=== PATIENT | male | born 1955 | race Caucasian/White ===

== ENCOUNTER 2016-06-12 07:15 | Inpatient (IN) | payer OTHER ==
[2016-06-12] VITALS (9 sets, daily range): BP systolic 95–124; BP diastolic 69–82
[~2016-06-12] VITALS: Ht 182.9 cm; Wt 105.2 kg
[~2016-06-12 07:15] MED LIST: ACET500T33 PO; ASPI-482 PO; CETI10TA16 PO; CHOL10002 PO; CHOL20004 PO; DIPH25CA3 PO; FAMO40TA4 PO; GLIM4TAB2 PO; INSU100I13 SQ; LISI40TA PO; METF10002 PO; MULT1CAP15 PO; SIMV40TA3 PO; TADA20TA PO
[2016-06-12] MEDS ORDERED: ASPIRIN 81 MG TAB.CHEW PO ONE ×2 (07:30→16:15)
[2016-06-12] MEDS ORDERED: MORPHINE SULFATE 2 MG/ML DISP.SYRIN. IV ONE (07:45)
[2016-06-12] MEDS ORDERED: NITROGLYCERIN SUBLINGUAL 0.4 MG BOTTLE OF 25. SL PRN ×2 (07:45→16:30)
--- NOTE | 2016-06-12 07:52 | EKG ---
[facility] [address] [place] [address] Test Date: 2016-06-12 Test Time: 07:25:47 Pat Name: JOE BENNETT Department: Room: Gender: M Frontload Driver: : 1955 Requested By: VANGIE ABEL Order Number: [id number] Reading MD: Zach Martins Measurements Intervals [place] Rate: 75 P: 51 GA: 174 QRS: 75 QRSD: 94 T: 48 QT: 364 QTc: 409 Interpretive Statements SINUS RHYTHM INCOMPLETE RIGHT BUNDLE BRANCH BLOCK NONSPECIFIC ST-T WAVE CHANGES. RI6.01 No previous ECG available for comparison Electronically Signed On 06-12-2016 10:51:51 VAULT TELLER by Zach Martins
--- NOTE | 2016-06-12 07:54 | PHYS DOC ---
Past Medical History Past Medical History: Diabetes-Type II, Hypertension, Other Additional Past Medical Histor: High Cholesterol. Past Surgical History: Other Additional Past Surgical Histo: Inguinal hernia at age 6,Surgery for cataracts, eye muscles,inc.eye pressure Alcohol Use: None Drug Use: None Adult General Chief Complaint Chief Complaint: CHEST PAIN HPI HPI Patient is a 60 year old male, who is a smoker, has a history of hypercholesterolemia, diabetes and hypertension with a brother who is 7 years younger than him that of a heart attack 3 years ago who presents with atraumatic chest pain/pressure with also adjacent left arm numbness/tingling that is been intermittent in nature for the past 3 days. Patient denies shortness of breath, cough, chills, epigastric pain, nausea or vomiting. He denies any provocative or palliative maneuvers for the pain. Patient admits that he does not check his blood sugar daily. He does not have a dedicated primary care doctor at this time. Patient states that "something" woke him up this morning that caused him to have chest discomfort as well as some mid back discomfort. He states this became concerning to him, so he came into the emergency room for evaluation. Patient denies any previous cardiac evaluations. He is currently experiencing less discomfort than he did earlier this morning. Review of Systems Review of Systems Constitutional: Denies fever or chills [] Eyes: Denies change in visual acuity, redness, or eye pain [] HENT: Denies nasal congestion or sore throat [] Respiratory: Denies cough or shortness of breath [] Cardiovascular: No additional information not addressed in HPI [] GI: Denies abdominal pain, nausea, vomiting, bloody stools or diarrhea [] : Denies dysuria or hematuria [] Musculoskeletal: Denies back pain or joint pain [] Integument: Denies rash or skin lesions [] Neurologic: Denies headache, focal weakness or sensory changes [] Endocrine: Denies polyuria or polydipsia [] Current Medications Current Medications Current Medications Medications (Trade) Dose Ordered Sig/Mick Start Time Stop Time Status Last Admin Dose Admin Aspirin (Children'S Aspirin) 324 mg 1X ONCE 06/12/16 07:30 06/12/16 07:33 DC 06/12/16 08:07 324 MG Heparin Sodium (Porcine) 3,000 unit PRN Q6HRS PRN 06/12/16 08:45 Heparin Sodium/ Dextrose 500 ml @ 20 mls/hr CONT PRN 06/12/16 08:45 Morphine Sulfate 2 mg 1X ONCE 06/12/16 07:45 06/12/16 07:47 DC 06/12/16 08:06 2 MG Nitroglycerin 0.4 mg 0.4 mg PRN Q5MIN PRN 06/12/16 07:45 06/12/16 08:05 0.4 MG Allergies Allergies Allergies Coded Allergies Type Severity Reaction Last Updated Verified No Known Drug Allergies 08/27/13 No Physical Exam Physical Exam Constitutional: Well developed, well nourished, no acute distress, non-toxic appearance. Patient sitting upright in the bed in no acute distress. He smells of cigarette smoke. HENT: Normocephalic, atraumatic, bilateral external ears normal, oropharynx moist, no oral exudates, nose normal. Eyes: PERRLA, EOMI, conjunctiva normal, no discharge. [] Neck: Normal range of motion, no tenderness, supple, no stridor. [] Cardiovascular:Heart rate 75 regular rhythm, no murmur. There is no JVD. PMI is not displaced. Lungs & Thorax: Bilateral breath sounds with scattered, coarse breath sounds. There is no respiratory distress or respiratory fatigue. There is no sensory muscle use. Abdomen: Bowel sounds normal, soft, no tenderness, no masses, no pulsatile masses. [] Skin: Warm, dry, no erythema, no rash. [] Back: No tenderness, no CVA tenderness. [] Extremities: No tenderness, no cyanosis, no clubbing, ROM intact, no edema. [] Neurologic: Alert and oriented X 3, normal motor function, normal sensory function, no focal deficits noted. [] Psychologic: Affect normal, judgement normal, mood normal. [] Current Patient Data Vital Signs Vital Signs Date Time Temp Pulse Resp B/P Pulse Ox O2 Delivery O2 Flow Rate FiO2 06/12/16 08:06 16 06/12/16 08:05 79 140/87 06/12/16 07:27 98.1 100 Room Air 98.1 Lab Values Laboratory Tests Test 06/12/16 07:35 White Blood Count 6.6x10^3/uL (4.0-11.0) Red Blood Count 5.17x10^6/uL (4.30-5.70) Hemoglobin 16.0g/dL (13.0-17.5) Hematocrit 48.9% (39.0-53.0) Mean Corpuscular Volume 95fL (79-100) Mean Corpuscular Hemoglobin 31pg (25-35) Mean Corpuscular Hemoglobin Concent 33g/dL (31-37) Red Cell Distribution Width 13.5% (11.5-14.5) Platelet Count 220x10^3/uL (140-400) Neutrophils (%) (Auto) 57% (31-73) Lymphocytes (%) (Auto) 29% (24-48) Monocytes (%) (Auto) 10% (0-9) H Eosinophils (%) (Auto) 3% (0-3) Basophils (%) (Auto) 1% (0-3) Neutrophils # (Auto) 3.7x10^3uL (1.8-7.7) Lymphocytes # (Auto) 1.9x10^3/uL (1.0-4.8) Monocytes # (Auto) 0.7x10^3/uL (0.0-1.1) Eosinophils # (Auto) 0.2x10^3/uL (0.0-0.7) Basophils # (Auto) 0.0x10^3/uL (0.0-0.2) Prothrombin Time 12.2SEC (11.7-14.0) Prothrombin Time INR 1.0 (0.8-1.1) Sodium Level 129mmol/L (136-145) L Potassium Level 4.5mmol/L (3.5-5.1) Chloride Level 99mmol/L (98-107) Carbon Dioxide Level 27mmol/L (21-32) Anion Gap 3 (6-14) L Blood Urea Nitrogen 24mg/dL (8-26) Creatinine 1.2mg/dL (0.7-1.3) Estimated GFR (Cockcroft-Gault) 61.8 Glucose Level 140mg/dL (70-99) H Calcium Level 9.8mg/dL (8.5-10.1) Magnesium Level 1.8mg/dL (1.8-2.4) Total Bilirubin 0.4mg/dL (0.2-1.0) Direct Bilirubin 0.1mg/dL (0.0-0.2) Aspartate Amino Transferase (AST) 31U/L (15-37) Alanine Aminotransferase (ALT) 31U/L (16-63) Alkaline Phosphatase 86U/L (46-116) Creatine Kinase 314U/L (39-308) H Creatine Kinase MB (Mass) 24.7ng/mL (0.0-3.6) H Creatine Kinase MB Relative Index 7.9% (0-4) H Troponin I Quantitative 1.928ng/mL (0.000-0.055) JZ-Jxs-P-Type Natriuretic Peptide 201pg/mL (0-124) H Total Protein 7.3g/dL (6.4-8.2) Albumin 4.0g/dL (3.4-5.0) Lipase 620U/L (73-393) H Laboratory Tests 06/12/16 07:35 Laboratory Tests 06/12/16 07:35 EKG EKG Twelve-lead EKG is performed at 0725 which shows a sinus rhythm with a rate of 75 bpm. DE interval is 174 ms with QRS duration of 94 ms and a QT duration of 409 ms. There is no [address] elevation or depression. There is an incomplete right bundle-branch block. There is no previous EKG to compare to. Radiology/Procedures Radiology/Procedures Chest x-ray as interpreted by Dr. Kang showing bilateral fibrotic changes, otherwise no acute cardiopulmonary disease process Course & Med Decision Making Course & Med Decision Making Pertinent Labs and Imaging studies reviewed. (See chart for details) Patient was seen and examined with JENY Tinsley. In brief, this is a 60- year-old male presenting with nonexertional chest pain that radiates to his left arm and back. These are intermittent episodes usually occurring at rest. They last from minutes to hours at a time. He had an episode this morning that woke him from sleep. He is currently asymptomatic. He denies cough, dyspnea, leg pain or swelling, fever or chills, nausea or vomiting, palpitations, lightheadedness. His exam reveals regular rate and rhythm, no edema, clear to auscultation bilaterally, no acute distress. EKG is nonischemic, chest film is largely unremarkable; Troponin is elevated. Will admit for NSTEMI. YAMILET score 3. Discussed case with Martine, cardiology CERTIFIED REGISTERED NURSE ANESTHETIST, who recommends heparin drip and will see him. Discussed case with Dr. Olivier, who will admit. -MD Werner Pearl Disclaimer Zaraon Disclaimer This electronic medical record was generated, in whole or in part, using a voice recognition dictation system. Departure Departure Impression: Primary Impression: NSTEMI (non-ST elevated myocardial infarction) Disposition: ADMITTED INPATIENT Admitting Physician: Marichuy Olivier Condition: STABLE Referrals: GAURAV AHMADI APRN (PCP) VANGIE ABEL Jun 12, 2016 07:54 Susana KANG MD Jun 12, 2016 08:17
[2016-06-12 07:59] LABS: BASO % 1 % (0-3); EOS % 3 % (0-3); HEMATOCRIT 48.9 % (39.0-53.0); LYMPH # 1.9 x10^3/uL (1.0-4.8); LYMPH % 29 % (24-48); MEAN CORPUSCULAR HEMOGLOBIN 31 pg (25-35); MEAN CORPUSCULAR HGB CONC 33 g/dL (31-37); MEAN CORPUSCULAR VOLUME 95 fL (79-100); MONO % 10 % (0-9); NEUT % 57 % (31-73); PLATELET COUNT 220 x10^3/uL (140-400); RED BLOOD COUNT 5.17 x10^6/uL (4.30-5.70); RED CELL DISTRIBUTION WIDTH 13.5 % (11.5-14.5); WHITE BLOOD COUNT 6.6 x10^3/uL (4.0-11.0)
[2016-06-12 08:08] LABS: PROTHROMBIN TIME PATIENT 12.2 SEC (11.7-14.0)
[2016-06-12 08:16] LABS: CALCIUM 9.8 mg/dL (8.5-10.1); CREATININE 1.2 mg/dL (0.7-1.3); GFR 61.8; POTASSIUM 4.5 mmol/L (3.5-5.1)
[2016-06-12 08:23] LABS: DIRECT BILIRUBIN 0.1 mg/dL (0.0-0.2); MAGNESIUM 1.8 mg/dL (1.8-2.4); TOTAL BILIRUBIN 0.4 mg/dL (0.2-1.0); TOTAL PROTEIN 7.3 g/dL (6.4-8.2)
[2016-06-12 08:31] LABS: CKMB INDEX 7.9 % (0-4); CKMB MASS 24.7 ng/mL (0.0-3.6)
--- NOTE | 2016-06-12 08:34 | RAD ---
Indication left-sided chest pain. A single view of the chest was obtained. Comparison is made to an examination 08/27/2013. The heart and pulmonary vessels appear normal. The lungs are clear of acute infiltrates. Significant pleural fluid is not present. There is no pneumothorax. The bony structures appear grossly intact. A significant change in the appearance of the chest compared to the previous exam is not seen. IMPRESSION: No acute or focal process. No significant change
--- NOTE | 2016-06-12 08:37 | ACF ---
Admit Criteria Forms Admit Criteria Forms Admit Criteria Forms ANGINA Clinical Indications for Admission to Inpatient Care (Place 'X' for any and all applicable criteria): Admission is indicated for suspected angina (e.g, chest pain pattern, angina- equivalent symptom, or other finding suggesting unstable angina) with ANY ONE of the following(1)(2)(3)(4)(5): [X]I. Angina needing acute intervention as indicated by ALL of the following ( 11)(12): [X ]a) Unstable angina is present as indicated by angina that is ANY ONE of the following: [X]i) New onset [ ]ii) Nocturnal [ ]iii) Prolonged at rest [ ]iv) Progressive [X]b) Angina warrants acute intervention as indicated by ANY ONE of the following: [ ]i) Recurrent angina (e.g, not responding as previously to treatment) [ ]ii) Angina at rest or with low-level activities despite initial medical therapy [ ]iii) New or presumably new ST-segment depression on ECG [ ]iv) Signs or symptoms of heart failure (eg, dyspnea, pulmonary edema) [ ]v) New or worsening mitral regurgitation [ ]vi) Hemodynamic instability [ ]vii) Dangerous arrhythmia (eg, sustained ventricular tachycardia) [ ]viii) History of percutaneous coronary intervention within 6 months [ ]ix) History of coronary artery bypass graft surgery [X]x) YAMILET risk score of 2 or greater[A] [X ]xi) History of Diabetes(14) [ ]xii) High-risk cardiac ischemia findings on noninvasive testing (e.g, echocardiogram, treadmill testing, nuclear scan) [ ]xiii) Chronic renal insufficiency (ie, estimated GFR less than 60 mL/min/1.732m) [ ]xiv) Left ventricular ejection fraction less than 40% [ ]II. Evidence of VT (e.g, cardiac biomarkers positive, ST-segment elevation on ECG). Also use Myocardial Infarction. Extended stay beyond goal length of stay may be needed for (1)(26): [ ]a) Intravascular procedural complications such as acute vessel closure, stent malposition, or vessel dissection(27) [ ]b) Extravascular procedural complications such as retroperitoneal hematoma, pericardial effusion, or cardiac tamponade [ ]c) Entry site complications causing bleeding, hematoma, or distal ischemia and requiring ongoing monitoring, surgical repair, or surgical thrombectomy(28) [ ]d) Heart failure [ ]e) Dangerous arrhythmia [ ]f) Hemodynamic instability with persisting symptoms after intensive medical management, or recurring severe prolonged symptoms [ ]g) Postprocedural myocardial infarction or acute renal failure The original [facility] [employer] content created by [facility] has been revised. The portions of the content which have been revised are identified through the use of italic text or in bold, and [facility] has neither reviewed nor approved the modified material. All other unmodified content is copyright [facility]. Please see references footnoted in the original [facility] [employer] edition 2016 TRENA TOSCANO Jun 12, 2016 08:37
[2016-06-12] MEDS ORDERED: HEPARIN for IV BOLUS 10,000 UNIT/10 ML VIAL. IV PRN (08:45)
[2016-06-12] MEDS ORDERED: HEPARIN 25,000UTS/500ML PREMIX 500 ML IV PRN (08:45)
[2016-06-12] MEDS ORDERED: IV NORMAL SALINE 1000ML BAG 1,000 ML IV SCH ×2 (09:50→16:18)
--- NOTE | 2016-06-12 10:04 | PDOC2 ---
CARDIAC CONSULT DATE OF CONSULT Date of Consult DATE: 06/12/16 TIME: 09:51 REASON FOR CONSULT Reason for Consult: NSTEMI REFERRING PHYSICIAN Referring Physician: Luis SOURCE Source: Chart review, Patient HISTORY OF PRESENT ILLNESS HISTORY OF PRESENT ILLNESS This is a pleasant 60 yo male admitted for complains of chest pain. 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 This went away by itself and actually continued to work at that time. Sunday night about 10 PM, he started having back pain again but this time with chest discomfort. All these sensation were pressure in consistency. This time it last about 5-10 minutes and actually was able to fall asleep. 2AM he was woken up by chest pressure which was associated with heavy feeling. There was no nausea, SOA, palpitations nor dizziness but this lasted 2 hours intesifying then decreased but lingered on. He is DM2 with prior A1C of 6.9. He takes antiHTN but does not check his BP. He takes ASA daily. His 2 brothers had CAD and one of them of SCD. Currently he comfortable. Denies any VTE. syncope, CAD, falls, fever, or recent injury. He is compliant with his medications. He has COPD and continues to smoke but does not take any inhalers. PAST MEDICAL HISTORY Cardiovascular: HTN, Hyperlipidemia Pulmonary: COPD CENTRAL NERVOUS SYSTEM: Other (No pertinent history) Heme/Onc: No pertinent hx Hepatobiliary: Hep A/B/C (B) Psych: No pertinent hx Musculoskeletal: Osteoarthritis Rheumatologic: No pertinent hx Infectious disease: No pertinent hx ENT: Other (eye injury) Renal/: Chronic renal insuff (CKD2), Other (erectile dysfunction) Endocrine: Diabetes (2) Dermatology: No pertinent hx PAST SURGICAL HISTORY Past Surgical History: Other (eye surgery) FAMILY HISTORY Family History: Coronary Artery Disease (2 brothers with 1 SCD) SOCIAL HISTORY Smoke: 2 packs per day (>45 yrs) ALCOHOL: occassional Drugs: None Lives: with Family CURRENT MEDICATIONS CURRENT MEDICATIONS Current Medications Medications (Trade) Dose Ordered Sig/Mick Route PRN Reason Start Time Stop Time Status Last Admin Dose Admin Aspirin (Children'S Aspirin) 324 mg 1X ONCE PO 06/12/16 07:30 06/12/16 07:33 DC 06/12/16 08:07 Morphine Sulfate 2 mg 1X ONCE IV 2/6/17 07:45 06/12/16 07:47 DC 06/12/16 08:06 Nitroglycerin 0.4 mg 0.4 mg PRN Q5MIN PRN SL CHEST PAIN 06/12/16 07:45 06/12/16 08:05 Heparin Sodium/ Dextrose 500 ml @ 20 mls/hr CONT PRN IV SEE I/O RECORD 06/12/16 08:45 06/12/16 09:19 Heparin Sodium (Porcine) 3,000 unit PRN Q6HRS PRN IV FOR UFH LEVEL LESS THAN 0.2 06/12/16 08:45 06/12/16 09:17 ALLERGIES ALLERGIES: Coded Allergies: No Known Drug Allergies (Unverified , 08/27/13) ROS Review of System 14 point ROS evaluated with pertinent positives noted per HPI PHYSICAL EXAM General: Alert, Oriented X3, Cooperative, No acute distress HEENT: Atraumatic, Mucous membr. moist/pink Lungs: Clear to auscultation, Normal air movement Heart: Regular rate, Normal S1, Normal S2, Other (distant heart sounds) Abdomen: Soft, No tenderness Extremities: No cyanosis, No edema Skin: No breakdown, No significant lesion Neuro: Normal speech, Sensation intact Psych/Mental Status: Mental status NL, Mood NL MUSCULOSKELETAL: Osteoarthritic changes both hands VITALS VITALS Vital Signs Date Time Temp Pulse Resp B/P Pulse Ox O2 Delivery O2 Flow Rate FiO2 06/12/16 08:30 78 18 121/73 95 06/12/16 08:00 Room Air 06/12/16 07:27 98.1 98.1 LABS Lab: Laboratory Tests Test 06/12/16 07:35 White Blood Count 6.6x10^3/uL (4.0-11.0) Red Blood Count 5.17x10^6/uL (4.30-5.70) Hemoglobin 16.0g/dL (13.0-17.5) Hematocrit 48.9% (39.0-53.0) Mean Corpuscular Volume 95fL (79-100) Mean Corpuscular Hemoglobin 31pg (25-35) Mean Corpuscular Hemoglobin Concent 33g/dL (31-37) Red Cell Distribution Width 13.5% (11.5-14.5) Platelet Count 220x10^3/uL (140-400) Neutrophils (%) (Auto) 57% (31-73) Lymphocytes (%) (Auto) 29% (24-48) Monocytes (%) (Auto) 10% (0-9) Eosinophils (%) (Auto) 3% (0-3) Basophils (%) (Auto) 1% (0-3) Neutrophils # (Auto) 3.7x10^3uL (1.8-7.7) Lymphocytes # (Auto) 1.9x10^3/uL (1.0-4.8) Monocytes # (Auto) 0.7x10^3/uL (0.0-1.1) Eosinophils # (Auto) 0.2x10^3/uL (0.0-0.7) Basophils # (Auto) 0.0x10^3/uL (0.0-0.2) Prothrombin Time 12.2SEC (11.7-14.0) Prothromb Time International Ratio 1.0 (0.8-1.1) Sodium Level 129mmol/L (136-145) Potassium Level 4.5mmol/L (3.5-5.1) Chloride Level 99mmol/L (98-107) Carbon Dioxide Level 27mmol/L (21-32) Anion Gap 3 (6-14) Blood Urea Nitrogen 24mg/dL (8-26) Creatinine 1.2mg/dL (0.7-1.3) Estimated GFR (Cockcroft-Gault) 61.8 Glucose Level 140mg/dL (70-99) Calcium Level 9.8mg/dL (8.5-10.1) Magnesium Level 1.8mg/dL (1.8-2.4) Total Bilirubin 0.4mg/dL (0.2-1.0) Direct Bilirubin 0.1mg/dL (0.0-0.2) Aspartate Amino Transf (AST/SGOT) 31U/L (15-37) Alanine Aminotransferase (ALT/SGPT) 31U/L (16-63) Alkaline Phosphatase 86U/L (46-116) Creatine Kinase 314U/L (39-308) Creatine Kinase MB (Mass) 24.7ng/mL (0.0-3.6) Creatine Kinase MB Relative Index 7.9% (0-4) Troponin I Quantitative 1.928ng/mL (0.000-0.055) RU-Wfa-F-Type Natriuretic Peptide 201pg/mL (0-124) Total Protein 7.3g/dL (6.4-8.2) Albumin 4.0g/dL (3.4-5.0) Lipase 620U/L (73-393) ASSESSMENT/PLAN ASSESSMENT/PLAN 1. NSTEMI 2. HTN 3. HLP 4. DM2 5. Heavy tobaccoism with COPD 6. Hyponatremia 7. Elevated lipase: lipase 620 Recommendations 1. C today, risks and benefits explained and agreeable to proceed. 2. Start on IVF,NS 3. Discussed lifestyle modifications and compliance. 4. TSH, lipid panel. 5. Heparin drip, ASA, secondary prevention measures to commence post cath. Problems: JOHN COSTA APRN Jun 12, 2016 10:04
[2016-06-12] MEDS ORDERED: IV NORMAL SALINE 1000ML BAG 1,000 ML IV ONE (10:15)
[2016-06-12 10:23] LABS: CHOLESTEROL/HDL RATIO 2.8
--- NOTE | 2016-06-12 11:10 | CARD ---
APPROVED REPORT EXAM: Two-dimensional and M-mode echocardiogram with Doppler and color Doppler. Other Information Quality : Fair Rhythm : NSRTechnically limited study due to smoking. INDICATION Non STEMI 2D DIMENSIONS RVDd3.4 (2.9-3.5cm)Left Atrium(2D)3.2 (1.6-4.0cm) IVSd0.7 (0.7-1.1cm)Aortic Root(2D)2.9 (2.0-3.7cm) LVDd5.4 (3.9-5.9cm)LVOT Diameter2.0 (1.8-2.4cm) PWd0.7 (0.7-1.1cm)LVDs3.8 (2.5-4.0cm) FS (%) 30.2 %SV81.6 ml LVEF(%)57.0 (>50%) Aortic Valve AoV Peak Amando.167.3cm/sAoV VTI33.6cm AO Peak GR.11.2mmHgLVOT VTI 22.76cm AO Mean GR.6mmHgAVA (VTI)2.23cm2 Mitral Valve MV E Xvdvltxs93.3cm/sMV E Peak Gr.3mmHg MV DECEL [id number] A Ohsdjzvw40.0cm/s MV E Mean Gr.2mmHgMV [id number] E/A Ratio1.1MV A [id number] MVA (PHT)2.97cm2 TDI Lateral E' P. V11.25cm/sMedial E' P. V8.49cm/s E/Lateral E'7.3E/Medial E'9.7 Tricuspid Valve TR P. Gjilpsnj530yv/sRAP VIEKCMYB0dnWp TR Peak Gr.56xrYvEDTB04gfBy LEFT VENTRICLE The left ventricle is normal size. There is normal left ventricular wall thickness. Left ventricle sy stolic function is normal. The Ejection Fraction is 55-60%. There is normal LV segmental wall motion. The left ventricular diastolic function and filling is normal for age. RIGHT VENTRICLE The right ventricle is normal size. The right ventricular systolic function is normal. ATRIA The left atrium size is normal. The right atrium size is normal. The interatrial septum is intact wit h no evidence for an atrial septal defect or patent foramen ovale as noted on 2-D or Doppler imaging. AORTIC VALVE The aortic valve is trileaflet. The non coronary cusp is calcified. Doppler and Color Flow revealed n o significant aortic regurgitation. There is no significant aortic valvular stenosis. MITRAL VALVE The mitral valve is normal in structure and function. There is no mitral valve stenosis. Doppler and Color Flow revealed trace to mild mitral regurgitation. TRICUSPID VALVE The tricuspid valve is normal in structure and function. Doppler and Color Flow revealed mild tricusp id regurgitation. The PA pressure was estimated at 33 mmHg. There is no tricuspid valve stenosis. PULMONIC VALVE The pulmonic valve is not well visualized. Doppler and Color Flow revealed no pulmonic valvular regur gitation. There is no pulmonic valvular stenosis. GREAT VESSELS The aortic root is normal in size. The IVC is normal in size and collapses >50% with inspiration. PERICARDIAL EFFUSION There is no evidence of significant pericardial effusion. Critical Notification Critical Value: No <Conclusion> The left ventricle is normal size. Left ventricle systolic function is normal. The Ejection Fraction is 55-60%. There is no significant aortic valvular stenosis. Doppler and Color Flow revealed no significant aortic regurgitation. Doppler and Color Flow revealed trace to mild mitral regurgitation. Doppler and Color Flow revealed mild tricuspid regurgitation. The PA pressure was estimated at 33 mmHg.
[2016-06-12] MEDS ORDERED: LIDOCAINE 2% 20 ML VIAL. ONE (14:27)
[2016-06-12] MEDS ORDERED: IODIXANOL 320 MG/ML 100 ML VIAL. ONE ×2 (14:27→15:22)
--- NOTE | 2016-06-12 14:35 | PDOC1 ---
History and Physical Date of Admission Date of Admission DATE: 06/12/16 TIME: 14:27 Identification/Chief Complaint Chief Complaint back pain, chest pain Source Source: Chart review, Patient History of Present Illness History of Present Illness Mr. White, is a pleasant 60 yo male admitted for days of chest pain. 3 days of intermittent pain, sometime woke him from sleep he sleeps on an incline due to back pain, + pressure, no nausea or diaphoresis Pain indicents about 60 minutes at a time, pain 5/10 Good DM2 control uses tobacco, precontemplation of quitting Past Medical History Cardiovascular: HTN, Hyperlipidemia Pulmonary: COPD CENTRAL NERVOUS SYSTEM: Other (No pertinent history) Heme/Onc: No pertinent hx Hepatobiliary: Hep A/B/C (B) Psych: No pertinent hx Musculoskeletal: low back pain, Osteoarthritis Rheumatologic: No pertinent hx Infectious disease: No pertinent hx ENT: Other (eye injury) Renal/: Chronic renal insuff (CKD2), Other (erectile dysfunction) Endocrine: Diabetes (2) Dermatology: No pertinent hx Past Surgical History Past Surgical History: Other (eye surgery) Family History Family History: Coronary Artery Disease (2 brothers with 1 SCD) Social History Smoke: 2 packs per day (>45 yrs) ALCOHOL: occassional Drugs: None Current Problem List Problem List Problems Medical Problems: (1) Chest pain Status: Acute (2) NSTEMI (non-ST elevated myocardial infarction) Status: Acute Problems: Current Medications Current Medications Current Medications Aspirin (Children'S Aspirin) 324 mg 1X ONCE PO Last administered on 06/12/16 08:07; Start 06/12/16 at 07:30; Stop 06/12/16 at 07:33; Status DC Morphine Sulfate 2 mg 1X ONCE IV Last administered on 06/12/16 08:06; Start at 07:45; Stop 06/12/16 at 07:47; Status DC Nitroglycerin 0.4 mg 0.4 mg PRN Q5MIN PRN SL CHEST PAIN Last administered on 08:05; Start 06/12/16 at 07:45 Heparin Sodium/ Dextrose 500 ml @ 20 mls/hr CONT PRN IV SEE I/O RECORD Last administered on 06/12/16 09:19; Start 06/12/16 at 08:45 Heparin Sodium (Porcine) 3000 unit 3,000 unit PRN Q6HRS PRN IV FOR UFH LEVEL LESS THAN 0.2 Last administered on 06/12/16 09:17; Start 06/12/16 at 08:45 Sodium Chloride 1,000 ml @ 0 mls/hr Q0M IV ; Start 06/12/16 at 09:50; Stop at 09:49 Sodium Chloride 1,000 ml @ 100 mls/hr 1X ONCE IV Last administered on 12:15; Start 06/12/16 at 10:15; Stop 06/12/16 at 20:14 Sodium Chloride (Iv Sodium Chloride 0.9% 1000ml Bag) 1,000 ml @ 75 mls/hr [id number] IV ; Start 06/12/16 at 10:15 Active Scripts Active Reported Tylenol Extra Strength (Acetaminophen) 500 Mg Tablet 500 Mg PO Multivitamins (Multivitamin) 1 Each Capsule 1 Each PO Simvastatin 40 Mg Tablet 40 Mg PO Metformin Hcl 1,000 Mg Tablet 1,000 Mg PO Lisinopril 40 Mg Tablet 40 Mg PO Lantus Solostar (Insulin Glargine,Hum.rec.anlog) 100 Unit/1 Ml Insuln.pen 100 Unit SQ Glimepiride 4 Mg Tablet 4 Mg PO Famotidine 40 Mg Tablet 40 Mg PO Cetirizine Hcl 10 Mg Tablet 10 Mg PO Aspir 81 (Aspirin) 81 Mg Tablet.dr 81 Mg PO Allergies Allergies: Coded Allergies: No Known Drug Allergies (Unverified , 08/27/13) ROS General: No: Appetite, Chills, Fatigue, Malaise, Night Sweats, Other PSYCHOLOGICAL ROS: No: Anxiety, Behavioral Disorder, Concentration difficultie , Decreased libido, Depression, Disorientation, Hallucinations, Hostility, Irritablity, Memory difficulties, Mood Swings, Obsessive thoughts, Other, Physical abuse, Sexual abuse, Sleep disturbances, Suicidal ideation Eyes: No Blurry vision, No Decreased vision, No Double vision, No Dry eyes, No Excessive tearing, No Eye Pain, No Itchy Eyes, No Loss of vision, No Other, No Photophobia, No Scotomata, No Uses contacts, No Uses glasses HEENT: YES: Heacaches, No: Epistaxis, Hearing change, Nasal congestion, Nasal discharge, Oral lesions, Other, Sinus pain, Sneezing, Snoring, Sore Throat, Tinnitus, Vertigo, Vocal changes Respiratory: No: Cough, Hemoptysis, Orthopnea, Other, Pleuritic Pain, SOB with excertion, Shortness of breath, Sputum Changes, Stridor, Tachypnea, Wheezing Cardiovascular: yes Chest Pain, No Edema, No Lt Headedness, No Orthopnea, No Other, No Palpitations, No Paroxysmal Noc. Dyspnea Gastrointestinal: No Abdominal Pain, No Constipation, No Diarrhea, No Hematochezia, No Melena, No Nausea, No Other, No Vomiting Genitourinary: No , No , No , No , No , No , No , No Discharge, No Dysuria, No Flank Pain, No Frequency, No Hematuria, No Incontinence, No Other, No Pain, No Retention, No Urgency Musculoskeletal: Yes Joint Pain (back), No Gait Disturbance, No Joint Stiffness, No Joint Swelling, No Muscle Pain, No Muscular Weakness, No Other, No Pain In:, No Swelling In: Neurological: No Behavorial Changes, No Bowel/Bladder ControlChng, No Confusion , No Dizziness, No Gait Disturbance, No Headaches, No Impaired Coord/balance, No Memory Loss, No Numbness/Tingling, No Other, No Seizures, No Speech Problems , No Tremors, No Visual Changes, No Weakness Skin: No Acne, No Dry Skin, No Eczema, No Hair Changes, No Lumps, No Mole Changes, No Mottling, No Nail Changes, No Other, No Pruritus, No Rash, No Skin Lesion Changes Physical Exam General: Alert, Oriented X3, Cooperative, No acute distress HEENT: Atraumatic, PERRLA Lungs: Clear to auscultation, Normal air movement Heart: no murmurs Abdomen: Normal bowel sounds, Soft (obese) Rectal Exam: not examined Extremities: No clubbing, No cyanosis, No edema, Normal pulses Skin: No rashes, No significant lesion Neuro: Normal speech, Normal tone, Sensation intact, Cranial nerves 3-12 NL Psych/Mental Status: Mental status NL, Mood NL Vitals Vitals Vital Signs Date Time Temp Pulse Resp B/P Pulse Ox O2 Delivery O2 Flow Rate FiO2 06/12/16 13:00 80 17 111/72 92 Room Air 06/12/16 12:00 98.0 98.0 Labs Labs Laboratory Tests Test 06/12/16 07:35 White Blood Count 6.6x10^3/uL (4.0-11.0) Red Blood Count 5.17x10^6/uL (4.30-5.70) Hemoglobin 16.0g/dL (13.0-17.5) Hematocrit 48.9% (39.0-53.0) Mean Corpuscular Volume 95fL (79-100) Mean Corpuscular Hemoglobin 31pg (25-35) Mean Corpuscular Hemoglobin Concent 33g/dL (31-37) Red Cell Distribution Width 13.5% (11.5-14.5) Platelet Count 220x10^3/uL (140-400) Neutrophils (%) (Auto) 57% (31-73) Lymphocytes (%) (Auto) 29% (24-48) Monocytes (%) (Auto) 10% (0-9) Eosinophils (%) (Auto) 3% (0-3) Basophils (%) (Auto) 1% (0-3) Neutrophils # (Auto) 3.7x10^3uL (1.8-7.7) Lymphocytes # (Auto) 1.9x10^3/uL (1.0-4.8) Monocytes # (Auto) 0.7x10^3/uL (0.0-1.1) Eosinophils # (Auto) 0.2x10^3/uL (0.0-0.7) Basophils # (Auto) 0.0x10^3/uL (0.0-0.2) Prothrombin Time 12.2SEC (11.7-14.0) Prothromb Time International Ratio 1.0 (0.8-1.1) Sodium Level 129mmol/L (136-145) Potassium Level 4.5mmol/L (3.5-5.1) Chloride Level 99mmol/L (98-107) Carbon Dioxide Level 27mmol/L (21-32) Anion Gap 3 (6-14) Blood Urea Nitrogen 24mg/dL (8-26) Creatinine 1.2mg/dL (0.7-1.3) Estimated GFR (Cockcroft-Gault) 61.8 Glucose Level 140mg/dL (70-99) Calcium Level 9.8mg/dL (8.5-10.1) Magnesium Level 1.8mg/dL (1.8-2.4) Total Bilirubin 0.4mg/dL (0.2-1.0) Direct Bilirubin 0.1mg/dL (0.0-0.2) Aspartate Amino Transf (AST/SGOT) 31U/L (15-37) Alanine Aminotransferase (ALT/SGPT) 31U/L (16-63) Alkaline Phosphatase 86U/L (46-116) Creatine Kinase 314U/L (39-308) Creatine Kinase MB (Mass) 24.7ng/mL (0.0-3.6) Creatine Kinase MB Relative Index 7.9% (0-4) Troponin I Quantitative 1.928ng/mL (0.000-0.055) NN-Etj-M-Type Natriuretic Peptide 201pg/mL (0-124) Total Protein 7.3g/dL (6.4-8.2) Albumin 4.0g/dL (3.4-5.0) Triglycerides Level 78mg/dL (0-150) Cholesterol Level 123mg/dL (0-200) LDL Cholesterol, Calculated 63mg/dL (0-100) VLDL Cholesterol, Calculated 16mg/dL (0-40) HDL Cholesterol 44mg/dL (40-60) Cholesterol/HDL Ratio 2.8 Lipase 620U/L (73-393) Thyroid Stimulating Hormone (TSH) 1.636uIU/mL (0.358-3.74) Laboratory Tests Test 06/12/16 07:35 White Blood Count 6.6x10^3/uL (4.0-11.0) Red Blood Count 5.17x10^6/uL (4.30-5.70) Hemoglobin 16.0g/dL (13.0-17.5) Hematocrit 48.9% (39.0-53.0) Mean Corpuscular Volume 95fL (79-100) Mean Corpuscular Hemoglobin 31pg (25-35) Mean Corpuscular Hemoglobin Concent 33g/dL (31-37) Red Cell Distribution Width 13.5% (11.5-14.5) Platelet Count 220x10^3/uL (140-400) Neutrophils (%) (Auto) 57% (31-73) Lymphocytes (%) (Auto) 29% (24-48) Monocytes (%) (Auto) 10% (0-9) Eosinophils (%) (Auto) 3% (0-3) Basophils (%) (Auto) 1% (0-3) Neutrophils # (Auto) 3.7x10^3uL (1.8-7.7) Lymphocytes # (Auto) 1.9x10^3/uL (1.0-4.8) Monocytes # (Auto) 0.7x10^3/uL (0.0-1.1) Eosinophils # (Auto) 0.2x10^3/uL (0.0-0.7) Basophils # (Auto) 0.0x10^3/uL (0.0-0.2) Prothrombin Time 12.2SEC (11.7-14.0) Prothromb Time International Ratio 1.0 (0.8-1.1) Sodium Level 129mmol/L (136-145) Potassium Level 4.5mmol/L (3.5-5.1) Chloride Level 99mmol/L (98-107) Carbon Dioxide Level 27mmol/L (21-32) Anion Gap 3 (6-14) Blood Urea Nitrogen 24mg/dL (8-26) Creatinine 1.2mg/dL (0.7-1.3) Estimated GFR (Cockcroft-Gault) 61.8 Glucose Level 140mg/dL (70-99) Calcium Level 9.8mg/dL (8.5-10.1) Magnesium Level 1.8mg/dL (1.8-2.4) Total Bilirubin 0.4mg/dL (0.2-1.0) Direct Bilirubin 0.1mg/dL (0.0-0.2) Aspartate Amino Transf (AST/SGOT) 31U/L (15-37) Alanine Aminotransferase (ALT/SGPT) 31U/L (16-63) Alkaline Phosphatase 86U/L (46-116) Creatine Kinase 314U/L (39-308) Creatine Kinase MB (Mass) 24.7ng/mL (0.0-3.6) Creatine Kinase MB Relative Index 7.9% (0-4) Troponin I Quantitative 1.928ng/mL (0.000-0.055) TM-Mrh-C-Type Natriuretic Peptide 201pg/mL (0-124) Total Protein 7.3g/dL (6.4-8.2) Albumin 4.0g/dL (3.4-5.0) Triglycerides Level 78mg/dL (0-150) Cholesterol Level 123mg/dL (0-200) LDL Cholesterol, Calculated 63mg/dL (0-100) VLDL Cholesterol, Calculated 16mg/dL (0-40) HDL Cholesterol 44mg/dL (40-60) Cholesterol/HDL Ratio 2.8 Lipase 620U/L (73-393) Thyroid Stimulating Hormone (TSH) 1.636uIU/mL (0.358-3.74) VTE Prophylaxis Ordered VTE Prophylaxis Devices: No VTE Pharmacological Prophylaxi: Yes Assessment/Plan Assessment/Plan NSTEMI, trop initial 1.8, trend, heparin gtt, asa, CV consult for Cardiac cath DM2, lantus 40 AM, glyburide at home, add SSI obesity, BMI 31 tobaccoism htn admit to ICU, heparin gtt GRAZYNA CARRERA MD Jun 12, 2016 14:35
--- NOTE | 2016-06-12 14:39 | PDOC ---
MODERATE SEDATION ASSESSMENT RISKS/ALTERNATIVES Risks/Alternatives Risks and alternatives of this type of sedation and procedure discussed with: RISK/ALTERNATIVES: Patient H & P ON CHART H & P H & P on chart and reviewed for co-morbid conditions and appropriate labs. H&P ON CHART: Yes STATUS PREG STATUS ASSESSED: N/A MEDS/ALLERGIES REVIEWED Meds/Allergies Reviewed Medications and Allergies including time and route of recently administered narcotics and sedatives. MEDS/ALLERGIES REVIEWED: Yes ASA RATING ASA RATING: II AIRWAY ASSESSMENT Airway Assessment Airway patency, oral function limitations, presence of caps, crowns, dentures, partials, and ability to extend neck assessed. AIRWAY ASSESSMENT: Yes MALLAMPATI SCORE MALLAMPATI SCORE: II PRE-SEDATION ASSESSMENT PRE-SEDATION ASSESSMENT: Yes SHAYLEE ARROYO MD Jun 12, 2016 14:39
[2016-06-12] MEDS ORDERED: ACETAMINOPHEN 500 MG TABLET PO PRN (14:45)
[2016-06-12] MEDS ORDERED: NICOTINE POLACRILEX 2MG GUM PACKAGE of 12. BC PRN (14:45)
[2016-06-12] MEDS ORDERED: NICOTINE 21MG PATCH. TD PRN (14:45)
[2016-06-12] MEDS ORDERED: DEXTROSE 50% 25 GM / 50ML DISP.SYRIN. IV PRN (14:45)
[2016-06-12] MEDS ORDERED: MIDAZOLAM HCL/PF 5 MG/5 ML VIAL ONE (14:53)
[2016-06-12] MEDS ORDERED: FENTANYL PF 250 MCG/5 ML VIAL. ONE (14:53)
[2016-06-12] MEDS ORDERED: TIROFIBAN 12.5MG -0.9% NS 0 ML IV ONE (15:24)
[2016-06-12] MEDS ORDERED: BIVALIRUDIN 250 MG VIAL IV ONE ×2 (15:26→15:45)
[2016-06-12] MEDS ORDERED: FENTANYL PF 250 MCG/5 ML VIAL. IV ONE (15:30)
[2016-06-12] MEDS ORDERED: LIDOCAINE 2% 20 ML VIAL. IJ ONE (15:30)
[2016-06-12] MEDS ORDERED: MIDAZOLAM HCL/PF 5 MG/5 ML VIAL IV ONE (15:30)
[2016-06-12] MEDS ORDERED: IODIXANOL 320 MG/ML 100 ML VIAL. IART ONE (15:30)
[2016-06-12] MEDS ORDERED: TICAGRELOR 90 MG TABLET. ONE (16:09)
[2016-06-12] MEDS ORDERED: TICAGRELOR 90 MG TABLET. PO ONE (16:15)
--- NOTE | 2016-06-12 16:18 | PDOC4 ---
Operative Note Operative Note Brief catheterization note. LV 116/18 AO 114/68 Left ventricular systolic function is normal. Left main. No lesions. LAD. Mid to distal disease in the 50-60% range. Some bridging. Left circumflex. Proximal occlusion of a small vessel. Right coronary artery. Dominant right coronary artery. 20% lesion. 2.25 x 23 drug-eluting stent to the left circumflex with 0% residual. Post PCI and non-ST elevated myocardial infarction protocol. Discussed with the patient and his family. Full report to follow. SHAYLEE ARROYO MD Jun 12, 2016 16:18
[2016-06-12] MEDS: INSULIN ASPART 300 UNITS/3 ML INSULN.PEN SQ SCH ×2 (16:30→17:00)
[2016-06-12] MEDS ORDERED: LIDOCAINE 2% 100 MG/5 ML DISP.SYRIN. IV PRN (16:30)
[2016-06-12] MEDS ORDERED: ACETAMINOPHEN 325 MG TABLET. PO PRN (16:30)
[2016-06-12] MEDS ORDERED: AMIODARONE 150 MG in IV DEXTROSE 5% 100 ML IV PRN (16:30)
[2016-06-12] MEDS ORDERED: ATROPINE 0.5 MG/5 ML DISP.SYRIN. IV PRN (16:30)
[2016-06-12] MEDS ORDERED: 0.9 % SODIUM CHLORIDE 10 ML DISP.SYRIN. IV PRN (16:30)
[2016-06-12] MEDS ORDERED: CYCLOBENZAPRINE 10 MG TABLET. PO PRN (16:30)
[2016-06-12] MEDS: IV NORMAL SALINE 1000ML BAG 1,000 ML IV SCH ×2 (17:27→23:10)
[2016-06-12] MEDS: FENTANYL PF 100 MCG/2 ML VIAL. IV PRN ×2 (17:27→18:45)
[2016-06-12] MEDS ORDERED: ONDANSETRON PF 4 MG/2 ML VIAL. IV PRN (20:00)
[2016-06-12] MEDS: METOPROLOL TART IMMED RELEASE 25 MG TABLET PO SCH (20:58)
[2016-06-12] MEDS: SIMVASTATIN 40 MG TABLET. PO SCH (20:58)
[2016-06-13] VITALS (7 sets, daily range): BP systolic 90–123; BP diastolic 50–79
[2016-06-13 05:11] LABS: BASO # 0.1 x10^3/uL (0.0-0.2); BASO % 1 % (0-3); EOS % 2 % (0-3); HEMATOCRIT 45.7 % (39.0-53.0); HEMOGLOBIN 15.1 g/dL (13.0-17.5); LYMPH # 1.3 x10^3/uL (1.0-4.8); LYMPH % 19 % (24-48); MEAN CORPUSCULAR HEMOGLOBIN 31 pg (25-35); MEAN CORPUSCULAR HGB CONC 33 g/dL (31-37); MEAN CORPUSCULAR VOLUME 95 fL (79-100); MONO % 9 % (0-9); NEUT % 70 % (31-73); PLATELET COUNT 187 x10^3/uL (140-400); RED BLOOD COUNT 4.82 x10^6/uL (4.30-5.70); RED CELL DISTRIBUTION WIDTH 13.4 % (11.5-14.5); WHITE BLOOD COUNT 7.3 x10^3/uL (4.0-11.0)
[2016-06-13 05:28] LABS: CALCIUM 9.2 mg/dL (8.5-10.1); CREATININE 0.9 mg/dL (0.7-1.3); GFR 86.1; POTASSIUM 3.9 mmol/L (3.5-5.1)
[2016-06-13] MEDS: FENTANYL PF 100 MCG/2 ML VIAL. IV PRN (06:16)
--- NOTE | 2016-06-13 06:28 | EKG ---
[facility] [address] [place] [address] Test Date: 2016-06-13 Test Time: 06:34:39 Pat Name: JOE BENNETT Department: Room: 115 1 Gender: M Proposal Coordinator: AMPARO : 1955 Requested By: SHAYLEE ARROYO Order Number: [id number] Reading MD: Measurements Intervals [place] Rate: 72 P: 56 MO: 174 QRS: 81 QRSD: 94 T: 48 QT: 378 QTc: 415 Interpretive Statements SINUS RHYTHM INCOMPLETE RIGHT BUNDLE BRANCH BLOCK QRS(T) CONTOUR ABNORMALITY CONSIDER ANTEROLATERAL MYOCARDIAL DAMAGE POSSIBLY ABNORMAL ECG RI6.01 Compared to ECG 06/12/2016 07:25:47 ST (T wave) deviation no longer present
[2016-06-13] MEDS: INSULIN DETEMIR 300 UNITS/3 ML INSULN.PEN. SQ SCH (07:00)
[2016-06-13] MEDS: INSULIN ASPART 300 UNITS/3 ML INSULN.PEN SQ SCH ×6 (07:30→17:00)
[2016-06-13] MEDS ORDERED: ASPIRIN ENTERIC COATED 325 MG TABLET.DR. PO SCH (08:00)
[2016-06-13] MEDS: ASPIRIN ENTERIC COATED 81 MG TABLET.DR. PO SCH (08:00)
[2016-06-13] MEDS: METOPROLOL TART IMMED RELEASE 25 MG TABLET PO SCH ×2 (08:16→20:53)
[2016-06-13] MEDS: CETIRIZINE HCL 10 MG TABLET PO SCH (08:22)
[2016-06-13] MEDS: TICAGRELOR 90 MG TABLET. PO SCH ×2 (08:22→20:53)
[2016-06-13] MEDS ORDERED: LISINOPRIL 40 MG TABLET. PO SCH (09:00)
[2016-06-13 09:10] LABS: MAGNESIUM 1.7 mg/dL (1.8-2.4)
--- NOTE | 2016-06-13 09:37 | PDOC ---
CARDIO Progress Notes Date and Time Date of Service 06/13/2016 Time of Evaluation 0920 Subjective Subjective: No Chest Pain, No shortness of breath, No Palpitations, No Dizziness Vitals Vitals Vital Signs Date Time Temp Pulse Resp B/P Pulse Ox O2 Delivery O2 Flow Rate FiO2 06/13/16 08:22 75 123/79 06/13/16 08:00 99.0 9 100 Room Air 99.0 Weight Weight [ ] Input and Output Intake and Output Intake and Output 06/13/16 07:00 Intake Total 1122 ml Output Total 1675 ml Balance -553 ml Intake Oral 240 ml IV Total 882 ml Output Urine Total 1675 ml Laboratory Labs Laboratory Tests Test 06/12/16 15:22 06/12/16 17:29 06/12/16 19:55 06/13/16 04:58 Activated Clotting Time 131sec (92-181) Glucose (Fingerstick) 55mg/dL (70-99) 110mg/dL (70-99) White Blood Count 7.3x10^3/uL (4.0-11.0) Red Blood Count 4.82x10^6/uL (4.30-5.70) Hemoglobin 15.1g/dL (13.0-17.5) Hematocrit 45.7% (39.0-53.0) Mean Corpuscular Volume 95fL (79-100) Mean Corpuscular Hemoglobin 31pg (25-35) Mean Corpuscular Hemoglobin Concent 33g/dL (31-37) Red Cell Distribution Width 13.4% (11.5-14.5) Platelet Count 187x10^3/uL (140-400) Neutrophils (%) (Auto) 70% (31-73) Lymphocytes (%) (Auto) 19% (24-48) Monocytes (%) (Auto) 9% (0-9) Eosinophils (%) (Auto) 2% (0-3) Basophils (%) (Auto) 1% (0-3) Neutrophils # (Auto) 5.1x10^3uL (1.8-7.7) Lymphocytes # (Auto) 1.3x10^3/uL (1.0-4.8) Monocytes # (Auto) 0.7x10^3/uL (0.0-1.1) Eosinophils # (Auto) 0.1x10^3/uL (0.0-0.7) Basophils # (Auto) 0.1x10^3/uL (0.0-0.2) Sodium Level 138mmol/L (136-145) Potassium Level 3.9mmol/L (3.5-5.1) Chloride Level 106mmol/L (98-107) Carbon Dioxide Level 25mmol/L (21-32) Anion Gap 7 (6-14) Blood Urea Nitrogen 18mg/dL (8-26) Creatinine 0.9mg/dL (0.7-1.3) Estimated GFR (Cockcroft-Gault) 86.1 Glucose Level 86mg/dL (70-99) Calcium Level 9.2mg/dL (8.5-10.1) Magnesium Level 1.7mg/dL (1.8-2.4) Lipase 252U/L (73-393) Test 06/13/16 08:14 Glucose (Fingerstick) 84mg/dL (70-99) Physical Exam HEENT: Neck Supple W Full Motion Chest: Symmetric LUNGS: Clear to Auscultation Heart: S1S2, RRR, no murmurs Abdomen: Soft N/T Extremities: No Calf Tenderness Neurology: alert, oriented, follow commands Other Exams Right groin arteriotomy site with moderate ecchymoses but no hematoma. Neurovascular status to bilateral LE intact. Assessment Assessment 1. CAD/NSTEMI 2. HTN 3. HLP 4. DM2 5. Heavy tobaccoism with COPD 6. Hyponatremia: resolved 7. Elevated lipase: resolved 8. Arrhythmia: reperfusion NSVT x1. otherwise no other significant ectopies. Recommendations 1. S/P PCI/MANAS to LCx. Mid to distal disease in the 50-60% range with some bridging to LAD with 20% to RCA. DAPT with brilinta and ASA. 2. TTE with normal EF and normal wall motion. Maintain po hydration, DC IVF. Replace Mg. 3. Discussed aggressive lifestyle modifications. RT for smoking cessation and dietitian to see pt. Strongly encouraged cardiac rehab. 4. Metoprolol, lisinopril, zocor 5. Recommend tight BG control. 6. Possible DC in AM 7. Follow up in office in 4 weeks. JOHN COSTA APRN Jun 13, 2016 09:37
[2016-06-13] MEDS ORDERED: MAGNESIUM SULFATE 2GM 50 ML IV ONE (10:00)
--- NOTE | 2016-06-13 10:53 | CARD ---
APPROVED REPORT Procedures. Left heart catheterization. Left ventriculogram. Selective coronary angiogram. Stent placement to an occluded ramus intermediate vessel. The patient is a 60-year-old male with reported episodes of chest pain over the previous one to 2 day s. He was admitted through the emergency room. Initial troponin was elevated. EKG showed no acute isc hemic changes. His pain resolved with medications. In the setting cardiac catheterization was recomme nded. Risks and benefits were discussed. The patient agreed to proceed. After informed consent was obtained the patient was brought to the heart catheterization lab. The are a of the right femoral artery was prepared in the usual manner with Betadine, sterile draping and loc al anesthetic. An 18-gauge needle was used to enter the right femoral artery, a wire placed and a 6 F rench sheath placed over the wire. A 6 [place] JL4 diagnostic catheter was advanced the ascending aort a and used to engage the left system. Sequential injections in various views were obtained. A 6 Frenc h Syd right diagnostic catheter was advanced to the ascending aorta. It was used to engage the r ight coronary artery and sequential injections in various views were obtained. A pigtail catheter was then advanced the ascending aorta and then into the left ventricle. Pressures were obtained. A 30 R AO left ventriculogram was performed. Pullback pressures were measured. The catheter was removed the patient. Imaging was reviewed. The patient was found to have an occlusion of a relatively small ramus intermediate vessel. We proceeded to revascularization. A 6 [place]an XB 3.5 guiding catheter was used to engage the left system. Angiomax as per protocol was ulises doshi. A PT choice wire and then a Hi-Torque floppy wire were used to cross the lesion. Initial inflat ions with a 2.5 x 15 balloon with 4 inflations at 8 mahamed for 20 seconds. A 2.25 x 23 Xience drug-eluti ng stent was then deployed with one inflation at 16 mahamed for 16 seconds. Residual lesion was 0% in a r elatively small vessel. The guiding system was removed from the patient. Injection of the sheath show ed normal placement. The sheath was removed and sealed with an Angio-Seal product but did require clara e additional hand pressure. The patient was then moved to the holding area in stable condition. Findings. Coronaries. Left main. The left main had no lesions. Left anterior descending. The LAD was a moderate size vessel which wrapped around the apex. It has a mid lesion of 15%. There was a distal lesion of 50-60% with some bridging. Left circumflex. The left circumflex appeared to be a very small vessel with no lesions. A ramus inte rmediate branch was occluded in its proximal portion. Right coronary artery. Right coronary was a large dominant vessel. It had mild mid disease of 10-15%. It also had very distal disease of 15%. Left ventriculogram. The left ventricle showed normal left ventricular systolic function with an ejection fraction of 55-6 0%. <Conclusion> Severe single-vessel coronary artery disease with occlusion of a ramus intermediate branch. Moderate distal disease in the LAD. Mild disease in the right coronary artery. Normal left ventricular systolic function. Successful drug-eluting stent placement to the occluded ramus intermediate vessel with a 0% residual lesion.
--- NOTE | 2016-06-13 11:18 | PDOC ---
PROGRESS NOTES Chief Complaint Chief Complaint 1. CAD/NSTEMI 2. HTN STABLE 3. HLP 4. DM2 STABLE. 5. NSVT 6. Hypomagnesemia Plan 1. S/P PCI/MANAS to LCx, DAPT with Brilinta and ASA. LVEF Normal no wall motion defects. 2. Monitor for any arrhythmias, 3. continue current care 4. anticipated DC in am per cardiology 5. replace magnesium History of Present Illness History of Present Illness no fever no chills no chest pain Vitals Vitals Vital Signs Date Time Temp Pulse Resp B/P Pulse Ox O2 Delivery O2 Flow Rate FiO2 06/13/16 08:22 75 123/79 06/13/16 08:00 99.0 9 100 Room Air 99.0 Physical Exam General: Alert, Oriented X3, Cooperative, No acute distress Heart: Regular rate, Normal S1, Normal S2, Other Lungs: Clear Abdomen: Normal bowel sounds, Soft (obese) Extremities: No clubbing, No cyanosis, No edema, Normal pulses Skin: No rashes, No significant lesion Labs LABS Laboratory Tests Test 06/12/16 15:22 06/12/16 17:29 06/12/16 19:55 06/13/16 04:58 Activated Clotting Time 131sec (92-181) Glucose (Fingerstick) 55mg/dL (70-99) 110mg/dL (70-99) White Blood Count 7.3x10^3/uL (4.0-11.0) Red Blood Count 4.82x10^6/uL (4.30-5.70) Hemoglobin 15.1g/dL (13.0-17.5) Hematocrit 45.7% (39.0-53.0) Mean Corpuscular Volume 95fL (79-100) Mean Corpuscular Hemoglobin 31pg (25-35) Mean Corpuscular Hemoglobin Concent 33g/dL (31-37) Red Cell Distribution Width 13.4% (11.5-14.5) Platelet Count 187x10^3/uL (140-400) Neutrophils (%) (Auto) 70% (31-73) Lymphocytes (%) (Auto) 19% (24-48) Monocytes (%) (Auto) 9% (0-9) Eosinophils (%) (Auto) 2% (0-3) Basophils (%) (Auto) 1% (0-3) Neutrophils # (Auto) 5.1x10^3uL (1.8-7.7) Lymphocytes # (Auto) 1.3x10^3/uL (1.0-4.8) Monocytes # (Auto) 0.7x10^3/uL (0.0-1.1) Eosinophils # (Auto) 0.1x10^3/uL (0.0-0.7) Basophils # (Auto) 0.1x10^3/uL (0.0-0.2) Sodium Level 138mmol/L (136-145) Potassium Level 3.9mmol/L (3.5-5.1) Chloride Level 106mmol/L (98-107) Carbon Dioxide Level 25mmol/L (21-32) Anion Gap 7 (6-14) Blood Urea Nitrogen 18mg/dL (8-26) Creatinine 0.9mg/dL (0.7-1.3) Estimated GFR (Cockcroft-Gault) 86.1 Glucose Level 86mg/dL (70-99) Calcium Level 9.2mg/dL (8.5-10.1) Magnesium Level 1.7mg/dL (1.8-2.4) Lipase 252U/L (73-393) Test 06/13/16 08:14 Glucose (Fingerstick) 84mg/dL (70-99) Assessment and Plan Assessmemt and Plan Problems Medical Problems: (1) Chest pain Status: Acute (2) NSTEMI (non-ST elevated myocardial infarction) Status: Acute Problems: Comment Review of Relevant I have reviewed the following items yoana (where applicable) has been applied. Labs Laboratory Tests Test 06/12/16 07:35 06/12/16 15:22 06/12/16 17:29 06/12/16 19:55 White Blood Count 6.6x10^3/uL (4.0-11.0) Red Blood Count 5.17x10^6/uL (4.30-5.70) Hemoglobin 16.0g/dL (13.0-17.5) Hematocrit 48.9% (39.0-53.0) Mean Corpuscular Volume 95fL (79-100) Mean Corpuscular Hemoglobin 31pg (25-35) Mean Corpuscular Hemoglobin Concent 33g/dL (31-37) Red Cell Distribution Width 13.5% (11.5-14.5) Platelet Count 220x10^3/uL (140-400) Neutrophils (%) (Auto) 57% (31-73) Lymphocytes (%) (Auto) 29% (24-48) Monocytes (%) (Auto) 10% (0-9) Eosinophils (%) (Auto) 3% (0-3) Basophils (%) (Auto) 1% (0-3) Neutrophils # (Auto) 3.7x10^3uL (1.8-7.7) Lymphocytes # (Auto) 1.9x10^3/uL (1.0-4.8) Monocytes # (Auto) 0.7x10^3/uL (0.0-1.1) Eosinophils # (Auto) 0.2x10^3/uL (0.0-0.7) Basophils # (Auto) 0.0x10^3/uL (0.0-0.2) Prothrombin Time 12.2SEC (11.7-14.0) Prothromb Time International Ratio 1.0 (0.8-1.1) Sodium Level 129mmol/L (136-145) Potassium Level 4.5mmol/L (3.5-5.1) Chloride Level 99mmol/L (98-107) Carbon Dioxide Level 27mmol/L (21-32) Anion Gap 3 (6-14) Blood Urea Nitrogen 24mg/dL (8-26) Creatinine 1.2mg/dL (0.7-1.3) Estimated GFR (Cockcroft-Gault) 61.8 Glucose Level 140mg/dL (70-99) Calcium Level 9.8mg/dL (8.5-10.1) Magnesium Level 1.8mg/dL (1.8-2.4) Total Bilirubin 0.4mg/dL (0.2-1.0) Direct Bilirubin 0.1mg/dL (0.0-0.2) Aspartate Amino Transf (AST/SGOT) 31U/L (15-37) Alanine Aminotransferase (ALT/SGPT) 31U/L (16-63) Alkaline Phosphatase 86U/L (46-116) Creatine Kinase 314U/L (39-308) Creatine Kinase MB (Mass) 24.7ng/mL (0.0-3.6) Creatine Kinase MB Relative Index 7.9% (0-4) Troponin I Quantitative 1.928ng/mL (0.000-0.055) TT-Dop-O-Type Natriuretic Peptide 201pg/mL (0-124) Total Protein 7.3g/dL (6.4-8.2) Albumin 4.0g/dL (3.4-5.0) Triglycerides Level 78mg/dL (0-150) Cholesterol Level 123mg/dL (0-200) LDL Cholesterol, Calculated 63mg/dL (0-100) VLDL Cholesterol, Calculated 16mg/dL (0-40) HDL Cholesterol 44mg/dL (40-60) Cholesterol/HDL Ratio 2.8 Lipase 620U/L (73-393) Thyroid Stimulating Hormone (TSH) 1.636uIU/mL (0.358-3.74) Activated Clotting Time 131sec (92-181) Glucose (Fingerstick) 55mg/dL (70-99) 110mg/dL (70-99) Test 06/13/16 04:58 06/13/16 08:14 White Blood Count 7.3x10^3/uL (4.0-11.0) Red Blood Count 4.82x10^6/uL (4.30-5.70) Hemoglobin 15.1g/dL (13.0-17.5) Hematocrit 45.7% (39.0-53.0) Mean Corpuscular Volume 95fL (79-100) Mean Corpuscular Hemoglobin 31pg (25-35) Mean Corpuscular Hemoglobin Concent 33g/dL (31-37) Red Cell Distribution Width 13.4% (11.5-14.5) Platelet Count 187x10^3/uL (140-400) Neutrophils (%) (Auto) 70% (31-73) Lymphocytes (%) (Auto) 19% (24-48) Monocytes (%) (Auto) 9% (0-9) Eosinophils (%) (Auto) 2% (0-3) Basophils (%) (Auto) 1% (0-3) Neutrophils # (Auto) 5.1x10^3uL (1.8-7.7) Lymphocytes # (Auto) 1.3x10^3/uL (1.0-4.8) Monocytes # (Auto) 0.7x10^3/uL (0.0-1.1) Eosinophils # (Auto) 0.1x10^3/uL (0.0-0.7) Basophils # (Auto) 0.1x10^3/uL (0.0-0.2) Sodium Level 138mmol/L (136-145) Potassium Level 3.9mmol/L (3.5-5.1) Chloride Level 106mmol/L (98-107) Carbon Dioxide Level 25mmol/L (21-32) Anion Gap 7 (6-14) Blood Urea Nitrogen 18mg/dL (8-26) Creatinine 0.9mg/dL (0.7-1.3) Estimated GFR (Cockcroft-Gault) 86.1 Glucose Level 86mg/dL (70-99) Calcium Level 9.2mg/dL (8.5-10.1) Magnesium Level 1.7mg/dL (1.8-2.4) Lipase 252U/L (73-393) Glucose (Fingerstick) 84mg/dL (70-99) Laboratory Tests Test 06/12/16 15:22 06/12/16 17:29 06/12/16 19:55 06/13/16 04:58 Activated Clotting Time 131sec (92-181) Glucose (Fingerstick) 55mg/dL (70-99) 110mg/dL (70-99) White Blood Count 7.3x10^3/uL (4.0-11.0) Red Blood Count 4.82x10^6/uL (4.30-5.70) Hemoglobin 15.1g/dL (13.0-17.5) Hematocrit 45.7% (39.0-53.0) Mean Corpuscular Volume 95fL (79-100) Mean Corpuscular Hemoglobin 31pg (25-35) Mean Corpuscular Hemoglobin Concent 33g/dL (31-37) Red Cell Distribution Width 13.4% (11.5-14.5) Platelet Count 187x10^3/uL (140-400) Neutrophils (%) (Auto) 70% (31-73) Lymphocytes (%) (Auto) 19% (24-48) Monocytes (%) (Auto) 9% (0-9) Eosinophils (%) (Auto) 2% (0-3) Basophils (%) (Auto) 1% (0-3) Neutrophils # (Auto) 5.1x10^3uL (1.8-7.7) Lymphocytes # (Auto) 1.3x10^3/uL (1.0-4.8) Monocytes # (Auto) 0.7x10^3/uL (0.0-1.1) Eosinophils # (Auto) 0.1x10^3/uL (0.0-0.7) Basophils # (Auto) 0.1x10^3/uL (0.0-0.2) Sodium Level 138mmol/L (136-145) Potassium Level 3.9mmol/L (3.5-5.1) Chloride Level 106mmol/L (98-107) Carbon Dioxide Level 25mmol/L (21-32) Anion Gap 7 (6-14) Blood Urea Nitrogen 18mg/dL (8-26) Creatinine 0.9mg/dL (0.7-1.3) Estimated GFR (Cockcroft-Gault) 86.1 Glucose Level 86mg/dL (70-99) Calcium Level 9.2mg/dL (8.5-10.1) Magnesium Level 1.7mg/dL (1.8-2.4) Lipase 252U/L (73-393) Test 06/13/16 08:14 Glucose (Fingerstick) 84mg/dL (70-99) Medications Current Medications Aspirin (Children'S Aspirin) 324 mg 1X ONCE PO Last administered on 06/12/16 08:07; Start 06/12/16 at 07:30; Stop 06/12/16 at 07:33; Status DC Morphine Sulfate 2 mg 1X ONCE IV Last administered on 06/12/16 08:06; Start at 07:45; Stop 06/12/16 at 07:47; Status DC Nitroglycerin 0.4 mg 0.4 mg PRN Q5MIN PRN SL CHEST PAIN Last administered on 08:05; Start 06/12/16 at 07:45; Stop 06/13/16 at 10:20; Status DC Heparin Sodium/ Dextrose 500 ml @ 20 mls/hr CONT PRN IV SEE I/O RECORD Last administered on 06/12/16 09:19; Start 06/12/16 at 08:45 Heparin Sodium (Porcine) 3000 unit 3,000 unit PRN Q6HRS PRN IV FOR UFH LEVEL LESS THAN 0.2 Last administered on 06/12/16 09:17; Start 06/12/16 at 08:45 Sodium Chloride 1,000 ml @ 0 mls/hr Q0M IV ; Start 06/12/16 at 09:50; Stop at 17:12; Status DC Sodium Chloride 1,000 ml @ 100 mls/hr 1X ONCE IV Last administered on 12:15; Start 06/12/16 at 10:15; Stop 06/12/16 at 17:12; Status DC Sodium Chloride 1,000 ml @ 75 mls/hr [id number] IV Last administered on 06/12/16 23:10; Start 06/12/16 at 10:15; Stop 06/13/16 at 09:41; Status DC Heparin Sodium/ Sodium Chloride 500 ml @ As Directed STK-MED ONCE .ROUTE ; Start 06/12/16 at 14:26; Stop 06/12/16 at 14:27; Status DC Lidocaine HCl 20 ml STK-MED ONCE .ROUTE ; Start 06/12/16 at 14:27; Stop 06/12/16 at 14:28; Status DC Iodixanol (Visipaque 320) 100 ml STK-MED ONCE .ROUTE ; Start 06/12/16 at 14:27; Stop 06/12/16 at 14:28; Status DC Nicotine (Nicoderm Cq 21mg) 1 patch PRN DAILY PRN TD SMOKING CESSATION; Start 06/12/16 at 14:45 Nicotine Polacrilex (Nicorette Gum) 1 each PRN Q1HR PRN BC SMOKING CESSATION; Start 06/12/16 at 14:45 Insulin Aspart (Novolog) 0-9 UNITS TIDWMEALS SQ ; Start 06/12/16 at 17:00 Dextrose 12.5 gm PRN Q15MIN PRN IV SEE COMMENTS Last administered on 06/12/16 17:34; Start 06/12/16 at 14:45 Acetaminophen (Tylenol) 500 mg Q6HRS PRN PO pain; Start 06/12/16 at 14:45 Aspirin (Ecotrin) 325 mg DAILYWBKFT PO Last administered on 06/13/16 08:16; Start 06/13/16 at 08:00; Stop 06/13/16 at 09:38; Status DC Cetirizine HCl (Zyrtec) 10 mg DAILY PO Last administered on 06/13/16 08:22; Start 06/13/16 at 09:00 Lisinopril (Prinivil) 40 mg DAILY PO Last administered on 06/13/16 08:22; Start 06/13/16 at 09:00 Simvastatin (Zocor) 40 mg QHS PO Last administered on 06/12/16 20:58; Start 06/12/16 at 21:00 Insulin Detemir (Levemir) 40 units DAILY07 SQ ; Start 06/13/16 at 07:00 Insulin Aspart (Novolog) 5 units TIDAC SQ ; Start 06/12/16 at 16:30 Midazolam HCl (Versed) 5 mg STK-MED ONCE .ROUTE ; Start 06/12/16 at 14:53; Stop 06/12/16 at 14:54; Status DC Fentanyl Citrate (Fentanyl 5ml Vial) 250 mcg STK-MED ONCE .ROUTE ; Start at 14:53; Stop 06/12/16 at 14:54; Status DC Iodixanol (Visipaque 320) 100 ml STK-MED ONCE .ROUTE ; Start 06/12/16 at 15:22; Stop 06/12/16 at 15:23; Status DC Heparin Sodium/ Sodium Chloride 1,000 unit 1X ONCE IART Last administered on 16:11; Start 06/12/16 at 15:30; Stop 06/12/16 at 15:31; Status DC Midazolam HCl (Versed) 2 mg 1X ONCE IV Last administered on 06/12/16 16:12; Start 06/12/16 at 15:30; Stop 06/12/16 at 15:31; Status DC Fentanyl Citrate (Fentanyl 5ml Vial) 25 mcg 1X ONCE IV Last administered on 16:13; Start 06/12/16 at 15:30; Stop 06/12/16 at 15:31; Status DC Iodixanol (Visipaque 320) 100 ml 1X ONCE IART Last administered on 06/12/16 16 :11; Start 06/12/16 at 15:30; Stop 06/12/16 at 15:31; Status DC Lidocaine HCl 20 ml 20 ml 1X ONCE IJ Last administered on 06/12/16 16:12; Start 06/12/16 at 15:30; Stop 06/12/16 at 15:31; Status DC Tirofiban/Sodium Chloride (Aggrastat 12.5 Mg/250 ml Premix) 0 ml @ As Directed STK-MED ONCE IV ; Start 06/12/16 at 15:24; Stop 06/12/16 at 15:25; Status DC Bivalirudin (Angiomax) 250 mg STK-MED ONCE IV ; Start 06/12/16 at 15:26; Stop 06/12/16 at 15:27; Status DC Bivalirudin (Angiomax) 250 mg 1X ONCE IV Last administered on 06/12/16 16:13; Start 06/12/16 at 15:45; Stop 06/12/16 at 15:46; Status DC Ticagrelor (Brilinta) 90 mg STK-MED ONCE .ROUTE ; Start 06/12/16 at 16:09; Stop 06/12/16 at 16:10; Status DC Ticagrelor (Brilinta) 180 mg 1X ONCE PO Last administered on 06/12/16 16:15; Start 06/12/16 at 16:15; Stop 06/12/16 at 16:21; Status DC Aspirin (Children'S Aspirin) 81 mg 1X ONCE PO Last administered on 06/12/16 16 :15; Start 06/12/16 at 16:15; Stop 06/12/16 at 16:21; Status DC Sodium Chloride 3 ml 3 ml QSHIFT PRN IV AFTER MEDS AND BLOOD DRAWS; Start at 16:30 Sodium Chloride (Iv Sodium Chloride 0.9% 1000ml Bag) 1,000 ml @ 75 mls/hr [id number] IV ; Start 06/12/16 at 16:18; Stop 06/12/16 at 17:12; Status DC Aspirin (Ecotrin) 81 mg DAILYWBKFT PO ; Start 06/13/16 at 08:00 Ticagrelor (Brilinta) 90 mg BID PO Last administered on 06/13/16 08:22; Start 06/13/16 at 09:00 Metoprolol Tartrate (Lopressor) 12.5 mg BID PO Last administered on 06/13/16 08 :16; Start 06/12/16 at 21:00 Acetaminophen (Tylenol) 650 mg PRN Q6HRS PRN PO MILD PAIN / TEMP; Start at 16:30 Fentanyl Citrate (Fentanyl 2ml Vial) 50 mcg PRN Q1HR PRN IV MODERATE OR SEVERE PAIN Last administered on 06/13/16 06:16; Start 06/12/16 at 16:30 Cyclobenzaprine HCl (Flexeril) 10 mg PRN TID PRN PO MUSCLE SPASMS Last administered on 06/12/16 18:45; Start 06/12/16 at 16:30 Nitroglycerin 0.4 mg 0.4 mg PRN Q5MIN PRN SL CHEST PAIN; Start 06/12/16 at 16:30 Amiodarone HCl/ Dextrose (Cordarone) 103 ml @ 10 mls/min 1X PRN PRN IV FOR VENTRICULAR TACHYCARDIA; Start 06/12/16 at 16:30 Lidocaine HCl 100 mg 1X PRN PRN IV FOR VENTRICULAR TACHYCARDIA; Start 06/12/16 at 16:30 Atropine Sulfate 0.5 mg PRN 1X PRN IV BRADYCARDIA; Start 06/12/16 at 16:30 Ondansetron HCl 4 mg 4 mg PRN Q6HRS PRN IV NAUSEA/VOMITING Last administered on 06/12/16 19:58; Start 06/12/16 at 20:00 Magnesium Sulfate/ Dextrose (Magnesium Sulfate PREMIX 2GM) 50 ml @ 25 mls/hr 1X ONCE IV Last administered on 06/13/16 10:38; Start 06/13/16 at 10:00; Stop 06/13/16 at 11:59 Active Scripts Active Reported Tylenol Extra Strength (Acetaminophen) 500 Mg Tablet 500 Mg PO Multivitamins (Multivitamin) 1 Each Capsule 1 Each PO Simvastatin 40 Mg Tablet 40 Mg PO Metformin Hcl 1,000 Mg Tablet 1,000 Mg PO Lisinopril 40 Mg Tablet 40 Mg PO Lantus Solostar (Insulin Glargine,Hum.rec.anlog) 100 Unit/1 Ml Insuln.pen 100 Unit SQ Glimepiride 4 Mg Tablet 4 Mg PO Famotidine 40 Mg Tablet 40 Mg PO Cetirizine Hcl 10 Mg Tablet 10 Mg PO Aspir 81 (Aspirin) 81 Mg Tablet.dr 81 Mg PO Vitals/I & O Vital Sign - Last 24 Hours 06/12/16 06/12/16 06/12/16 06/12/16 12:00 12:00 13:00 14:00 Temp 98.0 98.0 Pulse 78 80 78 Resp 19 17 18 B/P 124/71 111/72 112/77 Pulse Ox 95 92 95 O2 Delivery Room Air Room Air Room Air Room Air 06/12/16 06/12/16 06/12/16 06/12/16 16:02 16:13 17:27 18:00 Pulse 60 Resp 14 14 12 20 Pulse Ox 95 95 95 O2 Delivery Room Air Room Air Room Air 06/12/16 06/12/16 06/12/16 06/12/16 18:45 19:00 19:15 19:45 Pulse 78 Resp 14 B/P 103/71 Pulse Ox 95 93 94 O2 Delivery Room Air Room Air Room Air Room Air 06/12/16 06/12/16 06/12/16 06/13/16 20:00 20:58 21:00 00:00 Temp 97.7 98.3 97.7 98.3 Pulse 84 77 72 79 Resp 17 12 12 B/P 105/72 115/82 104/70 114/60 Pulse Ox 96 95 94 O2 Delivery Room Air Room Air Room Air 06/13/16 06/13/16 06/13/16 06/13/16 04:00 06:16 08:00 08:16 Temp 97.8 99.0 97.8 99.0 Pulse 71 75 79 Resp 13 13 9 B/P 119/59 123/79 124/79 Pulse Ox 96 100 O2 Delivery Room Air Room Air Room Air 06/13/16 08:22 Pulse 75 B/P 123/79 Intake and Output 06/12/16 06/12/16 06/13/16 15:00 23:00 07:00 Intake Total 240 ml 882 ml Output Total 1675 ml Balance 240 ml -793 ml KAMERON DANIELLE MD Jun 13, 2016 11:18
[2016-06-13] MEDS: SIMVASTATIN 40 MG TABLET. PO SCH (20:53)
[2016-06-14 03:30] VITALS: BP 90/55
[2016-06-14 05:14] VITALS: BP 90/55
[2016-06-14 07:00] VITALS: BP 97/60
[2016-06-14] MEDS: INSULIN DETEMIR 300 UNITS/3 ML INSULN.PEN. SQ SCH (07:00)
[2016-06-14] MEDS: INSULIN ASPART 300 UNITS/3 ML INSULN.PEN SQ SCH ×4 (07:30→12:12)
[2016-06-14] MEDS: ASPIRIN ENTERIC COATED 81 MG TABLET.DR. PO SCH (08:06)
[2016-06-14] MEDS: CETIRIZINE HCL 10 MG TABLET PO SCH (08:06)
[2016-06-14] MEDS: TICAGRELOR 90 MG TABLET. PO SCH (08:06)
[2016-06-14] MEDS ORDERED: LISINOPRIL 20 MG TABLET PO SCH (09:00)
[2016-06-14] MEDS: METOPROLOL TART IMMED RELEASE 25 MG TABLET PO SCH (09:00)
[2016-06-14 11:00] VITALS: BP 115/62
--- NOTE | 2016-06-14 11:56 | PDOC ---
CARDIO Progress Notes Date and Time Date of Service 06/14/2016 Time of Evaluation 1145 Subjective Subjective: No Chest Pain, No shortness of breath, No Palpitations, No Dizziness Vitals Vitals Vital Signs Date Time Temp Pulse Resp B/P Pulse Ox O2 Delivery O2 Flow Rate FiO2 06/14/16 07:00 99.1 81 17 97/60 95 Room Air 99.1 Weight Weight [ ] Input and Output Intake and Output Intake and Output 06/14/16 07:00 Intake Total 1050 ml Output Total 1400 ml Balance -350 ml Intake Oral 600 ml IV Total 450 ml Output Urine Total 1400 ml # Voids 2 # Bowel Movements 1 Laboratory Labs Laboratory Tests Test 06/13/16 17:48 06/14/16 04:05 06/14/16 07:29 Glucose (Fingerstick) 138mg/dL (70-99) 114mg/dL (70-99) 117mg/dL (70-99) Physical Exam HEENT: Neck Supple W Full Motion Chest: Symmetric LUNGS: Clear to Auscultation Heart: S1S2, RRR Abdomen: Soft N/T Extremities: No Calf Tenderness Neurology: alert, oriented, follow commands Other Exams Right groin arteriotomy site intact with mod ecchymoses, no hematoma, neurovascular status to bilateral LE intact. Assessment Assessment 1. CAD/NSTEMI 2. HTN 3. HLP 4. DM2 5. Heavy tobaccoism with COPD 6. Hyponatremia: resolved 7. Elevated lipase: resolved 8. Arrhythmia: reperfusion NSVT x1. otherwise no other significant ectopies. Recommendations 1. S/P PCI/MANAS to LCx. Mid to distal disease in the 50-60% range with some bridging to LAD with 20% to RCA. DAPT with brilinta (discount cards given) and ASA. 2. Reinforced aggressive lifestyle modifications. Smoking cessation. Strongly encouraged cardiac rehab. 4. Metoprolol, zocor. Decrease lisinopril 5. Recommend tight BG control. 6. May DC today, f/u in 4 weeks. 7. Pulmonary outpt referral for COPD/NITZA. JOHN COSTA APRN Jun 14, 2016 11:56
[2016-06-14] MEDS ORDERED: TICA90TA PO (12:21)
[2016-06-14] MEDS ORDERED: LISI40TA PO (12:21)
[2016-06-14] MEDS ORDERED: METO25TA4 PO (12:21)
--- NOTE | 2016-06-15 02:51 | DS ---
DATE OF DISCHARGE: 06/14/2016 DISCHARGE DIAGNOSES: 1. Coronary artery disease, [id number] myocardial infarction, status post percutaneous coronary intervention and drug-eluting stent placed to left circumflex. 2. Hypertension, stable. 3. Hyperlipidemia. 4. Type 2 diabetes mellitus. 5. Nonsustained ventricular tachycardia, resolved. 6. Hypomagnesemia, stable. BRIEF HOSPITAL COURSE: A 60-year-old male patient who is admitted to the hospital on 06/12/2015 for chest pain and he initially was diagnosed with NSTEMI. The patient was placed on heparin GTT as per ACS protocol later, the patient went for cardiac catheterization and PCI was done by Dr. Kapoor. Post surgery, he has been observed in the Critical Care Unit. The patient developed some NSVT and he was observed one more day. He was hemodynamically stable and no arrhythmias noted. Today, the patient's blood pressure has been stable and denies any symptoms of chest pain, syncope, or palpitations. The patient has been deemed stable enough to go home and follow up with primary care doctor and Cardiology. DISCHARGE PHYSICAL EXAMINATION: GENERAL: Alert and oriented x 3. HEART: S1 and S2 present. LUNGS: Clear to auscultation. ABDOMEN: Soft and nontender. EXTREMITIES: No edema. DISCHARGE DISPOSITION: Home. DISCHARGE CONDITION: Stable. MEDICATIONS: Reviewed and reconciled, please see MRAD. New scripts for Brilinta and metoprolol provided. The patient is advised to stop his insulin until he sees primary care doctor as he is not requiring any insulin during hospitalization. As per home medications, he was taking nearly 40 units, which is not required. Total time spent for discharge is 35 minutes for patient education, counseling, and coordination of care and physical examination. KAMERON DANIELLE MD DR: DONALD/mingo JOB#: [id number] / [id number]
[2016-06-15] MEDS ORDERED: LISINOPRIL 2.5 MG TABLET PO SCH (09:00)
[2016-06-15] MEDS ORDERED: LISINOPRIL 10 MG TABLET PO SCH (09:00)
== END 2016-06-14 12:50 | disposition home or self-care (01) | DRG 247 ==
LOC: ER 07:15 → 1 WEST ICU 08:15
PROVIDERS: ADMIT Internal Medicine; ATTEND Internal Medicine
PROC: 027034Z Dilation of Coronary Artery, One Artery with Drug-eluting Intraluminal Device, Percutaneous Approach (ICD-10-PCS; principal; 2016-06-13)
PROC: 4A023N7 Measurement of Cardiac Sampling and Pressure, Left Heart, Percutaneous Approach (ICD-10-PCS; 2016-06-13)
PROC: B2111ZZ Fluoroscopy of Multiple Coronary Arteries using Low Osmolar Contrast (ICD-10-PCS; 2016-06-13)
PROC: B2151ZZ Fluoroscopy of Left Heart using Low Osmolar Contrast (ICD-10-PCS; 2016-06-13)
DX: I21.4 Non-ST elevation (NSTEMI) myocardial infarction (principal); E87.1 Hypo-osmolality and hyponatremia; I47.2 Ventricular tachycardia; I25.10 Atherosclerotic heart disease of native coronary artery without angina pectoris; E11.22 Type 2 diabetes mellitus with diabetic chronic kidney disease; E66.9 Obesity, unspecified; E78.00 Pure hypercholesterolemia, unspecified; E78.5 Hyperlipidemia, unspecified; E83.42 Hypomagnesemia; F17.210 Nicotine dependence, cigarettes, uncomplicated; I12.9 Hypertensive chronic kidney disease with stage 1 through stage 4 chronic kidney disease, or unspecified chronic kidney disease; J44.9 Chronic obstructive pulmonary disease, unspecified; M19.90 Unspecified osteoarthritis, unspecified site; M54.5 Low back pain; N18.2 Chronic kidney disease, stage 2 (mild); Z68.31 Body mass index [BMI] 31.0-31.9, adult; Z82.49 Family history of ischemic heart disease and other diseases of the circulatory system; Z98.61 Coronary angioplasty status
CPT/HCPCS: 36415; 71010; 80048; 80061; 80076; 82553; 82947; 83690; 83735; 83880; 84443; 84484; 85027; 85347; 85610; 87641; 92928; 93005; 93306; 93458; 96374; 96375; 99406; C1725; C1769; C1771; C1874; C1887; C1892; G0269; J0583; J1815; J2250; J2270; J2405; J3010; J7030; J7042; J7060; 99285-25

== ENCOUNTER → 2016-06-29 | Outpatient (CLI) | payer OTHER ==
[2016-06-14 11:00] VITALS: BP 115/62
[~2016-06-29] MED LIST changes: +METO25TA4 PO; +TICA90TA PO
--- NOTE | 2016-06-29 13:41 | RAD ---
APPROVED REPORT Patient Location: OUT-PATIENT Indications Claudication:Right VELOCITY AND DOPPLER WAVEFORM ANALYSIS RIGHT cm/secWaveformSeverity LEFT c m/secWaveformSeverity pCFA 55.4MonophasicpCFA Prof Fem Art. 22.7MonophasicProf Fem Art. Fem Art Prox. 42.1MonophasicFem Art Prox. Fem Art Mid. 38.0MonophasicFem Art Mid. Fem Art Dist. 35.5MonophasicFem Art Dist. Pop Art(Fossa) 21.9MonophasicPop Art(Fossa) GEOPHYSICAL DATA TECHNICIAN Dist. 30.3MonophasicPTA Dist. Per Art Dist. 28.5MonophasicPer Art Dist. FRANCIS Prox. 29.6MonophasicATA Prox. FRANCIS Dist. 9.4MonophasicATA Dist. Findings Grayscale images of the right lower extremity arterial vessels were obtained from the common femoral artery to the dorsalis pedis level. The entire arterial tree appears to be diffusely calcified with moderate diffuse plaque noted. No obvious focal high-grade stenosis is identified on grayscale image s. Velocities are lower than expected throughout the arterial system from the common femoral artery to t he below-knee vessels. No focal high-grade acceleration or decelerations noted with monophasic spect ral waveforms noted throughout the leg. This is likely related to moderate diffuse atherosclerotic d isease with loss of arterial elasticity. Cannot rule out a more proximal abdominal high-grade stenos is. Another consideration may be systolic heart failure. Critical Notification Critical Value: No <Conclusion> No significant high-grade stenosis identified in the right lower extremity arterial vessels. Diffuse moderate arthroscopic plaque noted. Cannot rule out a more proximal high-grade lesion in the abdomen versus low flow state due to heart f ailure.
== END | disposition home or self-care (01) ==
LOC: US 10:24
PROVIDERS: ATTEND Internal Medicine Cardiovascular Disease
DX: I73.89 Other specified peripheral vascular diseases (principal)
CPT/HCPCS: 93926

== ENCOUNTER 2019-01-09 12:25 | Emergency (ER) | payer OTHER ==
[~2019-01-09] VITALS: Ht 180.3 cm; Wt 113.1 kg
[~2019-01-09 12:25] MED LIST changes: -CHOL20004 PO; +CHOL200074 PO; +DIPH25CA23 PO; -DIPH25CA3 PO; +LISI-130 PO; -LISI40TA PO; -METF10002 PO; +METF10007 PO
[2019-01-09 13:10] LABS: BASO # 0.1 x10^3/uL (0.0-0.2); BASO % 1 % (0-3); EOS # 0.2 x10^3/uL (0.0-0.7); EOS % 3 % (0-3); HEMATOCRIT 48.9 % (39.0-53.0); HEMOGLOBIN 16.5 g/dL (13.0-17.5); LYMPH # 1.6 x10^3/uL (1.0-4.8); LYMPH % 28 % (24-48); MEAN CORPUSCULAR HEMOGLOBIN 32 pg (25-35); MEAN CORPUSCULAR HGB CONC 34 g/dL (31-37); MEAN CORPUSCULAR VOLUME 95 fL (79-100); MONO # 0.6 x10^3/uL (0.0-1.1); MONO % 11 % (0-9); NEUT # 3.4 x10^3/uL (1.8-7.7); NEUT % 58 % (31-73); PLATELET COUNT 193 x10^3/uL (140-400); RED BLOOD COUNT 5.14 x10^6/uL (4.30-5.70); WHITE BLOOD COUNT 5.9 x10^3/uL (4.0-11.0)
--- NOTE | 2019-01-09 13:13 | RAD ---
EXAM: CT Head without IV contrast CLINICAL HISTORY: Confusion, altered mental status COMPARISON: None. TECHNIQUE: Routine CT of the head without contrast. Soft tissues and bone windows were reviewed. PQRS compliance statement - One or more of the following individualized dose reduction techniques were utilized for this study: 1. Automated exposure control 2. Adjustment of the mA and/or kV according to patient size 3. Use of iterative reconstruction technique FINDINGS: There is no evidence of hemorrhage, mass or extra-axial fluid collection. Mims-white differentiation is maintained with no evidence of edema. There is no mass effect or shift of the intracranial structures. The ventricles, basilar cisterns and cortical sulci are normal in size and configuration for the patients stated age. The cerebellum and brainstem are unremarkable. The calvarium demonstrates no evidence of fracture or focal lesion. There is normal aeration of the visualized paranasal sinuses and mastoid air cells. The visualized portions of the orbits are normal. Atherosclerotic calcifications of the intracranial internal carotid and vertebral arteries is seen. IMPRESSION: No evidence for acute intracranial hemorrhage. Findings of no evidence for acute intracranial hemorrhage discussed with referring provider Alana at 1:08 PM 01/09/2019. Electronically signed by: Pa Navarro MD (01/09/2019 1:10 PM) [facility]
--- NOTE | 2019-01-09 13:16 | EKG ---
[facility] [address] [place] [address] Test Date: 2019-01-09 Test Time: 12:50:54 Pat Name: JOE BENNETT Department: Room: Gender: M Shipping Processor: : 1955 Requested By: PROSPER KO Order Number: [id number] Reading MD: Measurements Intervals [place] Rate: 83 P: 58 UT: 170 QRS: 77 QRSD: 96 T: 52 QT: 358 QTc: 426 Interpretive Statements SINUS RHYTHM VENTRICULAR PREMATURE COMPLEX(ES) INCOMPLETE RIGHT BUNDLE BRANCH BLOCK QRS(T) CONTOUR ABNORMALITY CANNOT RULE OUT ANTEROSEPTAL MYOCARDIAL DAMAGE ABNORMAL ECG No previous ECG available for comparison
--- NOTE | 2019-01-09 13:18 | RAD ---
PORTABLE CHEST 1V History: Confusion Comparison: June 12, 2016 Findings: No consolidation or pleural effusion. Normal heart size. Low lung volumes. Impression: 1. No acute cardiopulmonary process. Electronically signed by: Tavo Rajan DO (01/09/2019 1:15 PM) [id number]
[2019-01-09 13:20] LABS: PROTHROMBIN TIME PATIENT 11.8 SEC (11.7-14.0)
[2019-01-09 13:22] LABS: CALCIUM 9.4 mg/dL (8.5-10.1); CREATININE 1.7 mg/dL (0.7-1.3); GFR 40.9; POTASSIUM 4.7 mmol/L (3.5-5.1)
[2019-01-09 13:27] LABS: ALBUMIN 3.9 g/dL (3.4-5.0); ALBUMIN/GLOBULIN RATIO 1.1 (1.0-1.7); TOTAL BILIRUBIN 0.3 mg/dL (0.2-1.0); TOTAL PROTEIN 7.3 g/dL (6.4-8.2)
[2019-01-09 14:45] VITALS: BP 110/64
--- NOTE | 2019-01-09 14:51 | PHYS DOC ---
Past Medical History Past Medical History: Diabetes-Type II, High Cholesterol, Hypertension, [place] Additional Past Medical Histor: High Cholesterol. Past Surgical History: Tonsillectomy, Other Additional Past Surgical Histo: STENT PLACEMENT X1 Alcohol Use: None Drug Use: None Adult General Chief Complaint Chief Complaint: NEURO SYMPTOMS/DEFICITS [facility] Patient is a 63 year old male who presents with complaining of confusion and problem with his balance. Patient states he was started on Neurontin last night after not taking medication for 4 or 5 months. Patient states he had gradual onset of confusion and unable to thinking right while he was at work at 8:30 today and had problem with his balance. Patient denies headache, focal neuro deficit, tinnitus, nausea and vomiting, chest pain, shortness of breath, history of trauma with the same problem previously. Patient arrived after 4 and half hours after starting symptom and code stroke was activated at his arrival to ER. Review of Systems Review of Systems Constitutional: Denies fever or chills [] Eyes: Denies change in visual acuity, redness, or eye pain [] HENT: Denies nasal congestion or sore throat [] Respiratory: Denies cough or shortness of breath [] Cardiovascular: No additional information not addressed in [facility] [] GI: Denies abdominal pain, nausea, vomiting, bloody stools or diarrhea [] : Denies dysuria or hematuria [] Musculoskeletal: Denies back pain or joint pain [] Integument: Denies rash or skin lesions [] Neurologic: Denies headache, focal weakness or sensory changes [] Endocrine: Denies polyuria or polydipsia [] All other systems were reviewed and found to be within normal limits, except as documented in this note. Allergies Allergies Allergies Coded Allergies Type Severity Reaction Last Updated Verified No Known Drug Allergies 08/27/13 No Physical Exam Physical Exam Constitutional: Well developed, well nourished, mild distress, non-toxic appearance. [] HENT: Normocephalic, atraumatic. Eyes: PERRLA, EOMI, conjunctiva normal, no discharge. [] Neck: Normal range of motion, no tenderness, supple, no stridor. [] Cardiovascular:Heart rate regular rhythm, no murmur [] Lungs & Thorax: Bilateral breath sounds clear to auscultation [] Abdomen: Bowel sounds normal, soft, no tenderness, no masses, no pulsatile masses. [] Skin: Warm, dry, no erythema, no rash. [] Back: No tenderness, no CVA tenderness. [] Extremities: No tenderness, no cyanosis, no clubbing, ROM intact, no edema. [] Neurologic: Alert and oriented X 3, no focal deficits noted. [] Psychologic: Affect normal, judgement normal, mood normal. [] Current Patient Data Vital Signs Vital Signs Date Time Temp Pulse Resp B/P (MAP) Pulse Ox O2 Delivery O2 Flow Rate FiO2 01/09/19 12:30 98.2 86 14 154/80 (104) 95 Room Air 98.2 Lab Values Laboratory Tests Test 01/09/19 12:54 01/09/19 12:56 White Blood Count 5.9 x10^3/uL (4.0-11.0) Red Blood Count 5.14 x10^6/uL (4.30-5.70) Hemoglobin 16.5 g/dL (13.0-17.5) Hematocrit 48.9 % (39.0-53.0) Mean Corpuscular Volume 95 fL (79-100) Mean Corpuscular Hemoglobin 32 pg (25-35) Mean Corpuscular Hemoglobin Concent 34 g/dL (31-37) Red Cell Distribution Width 14.0 % (11.5-14.5) Platelet Count 193 x10^3/uL (140-400) Neutrophils (%) (Auto) 58 % (31-73) Lymphocytes (%) (Auto) 28 % (24-48) Monocytes (%) (Auto) 11 % (0-9) H Eosinophils (%) (Auto) 3 % (0-3) Basophils (%) (Auto) 1 % (0-3) Neutrophils # (Auto) 3.4 x10^3/uL (1.8-7.7) Lymphocytes # (Auto) 1.6 x10^3/uL (1.0-4.8) Monocytes # (Auto) 0.6 x10^3/uL (0.0-1.1) Eosinophils # (Auto) 0.2 x10^3/uL (0.0-0.7) Basophils # (Auto) 0.1 x10^3/uL (0.0-0.2) Prothrombin Time 11.8 SEC (11.7-14.0) Prothrombin Time INR 0.9 (0.8-1.1) Activated Partial Thromboplast Time 31 SEC (24-38) Sodium Level 143 mmol/L (136-145) Potassium Level 4.7 mmol/L (3.5-5.1) Chloride Level 106 mmol/L (98-107) Carbon Dioxide Level 25 mmol/L (21-32) Anion Gap 12 (6-14) Blood Urea Nitrogen 23 mg/dL (8-26) Creatinine 1.7 mg/dL (0.7-1.3) H Estimated GFR (Cockcroft-Gault) 40.9 BUN/Creatinine Ratio 14 (6-20) Glucose Level 144 mg/dL (70-99) H Calcium Level 9.4 mg/dL (8.5-10.1) Total Bilirubin 0.3 mg/dL (0.2-1.0) Aspartate Amino Transferase (AST) 22 U/L (15-37) Alanine Aminotransferase (ALT) 25 U/L (16-63) Alkaline Phosphatase 75 U/L (46-116) Creatine Kinase 129 U/L (39-308) Creatine Kinase MB (Mass) 1.0 ng/mL (0.0-3.6) Creatine Kinase MB Relative Index 0.8 % (0-4) Troponin I Quantitative < 0.017 ng/mL (0.000-0.055) Total Protein 7.3 g/dL (6.4-8.2) Albumin 3.9 g/dL (3.4-5.0) Albumin/Globulin Ratio 1.1 (1.0-1.7) Glucose (Fingerstick) 129 mg/dL (70-99) H Laboratory Tests 01/09/19 12:54 Laboratory Tests 01/09/19 12:54 EKG EKG EKG interpreted by me. EKG at 1250 showed normal sinus rhythm at a rate of 83, PVCs, incomplete right bundle branch block, normal TN and QT intervals, no acute ST and T-wave elevation. Radiology/Procedures Radiology/Procedures [][facility] [address] [place] [address] IMAGING REPORT Signed PATIENT: JOE BENNETT ACCOUNT: [id number] : 1955 LOCATION: ER AGE: 63 SEX: M EXAM STATUS: REG ER ORD. PHYSICIAN: PROSPER KO MD REASON: sudden onset of confusion PROCEDURE: PORTABLE CHEST 1V PORTABLE CHEST 1V History: Confusion Comparison: June 12, 2016 Findings: No consolidation or pleural effusion. Normal heart size. Low lung volumes. Impression: 1. No acute cardiopulmonary process. Electronically signed by: Tavo Rajan DO (01/09/2019 1:15 PM) [id number] DICTATED and SIGNED BY: TAVO RAJAN DO DATE: 01/09/19 1315 [facility] [address] [place] [address] IMAGING REPORT Signed PATIENT: JOE BENNETT ACCOUNT: [id number] : 1955 LOCATION: ER AGE: 63 SEX: M EXAM STATUS: REG ER ORD. PHYSICIAN: PROSPER KO MD REASON: sudden onset of confusion PROCEDURE: CT CODE STROKE HEAD WO EXAM: CT Head without IV contrast CLINICAL HISTORY: Confusion, altered mental status COMPARISON: None. TECHNIQUE: Routine CT of the head without contrast. Soft tissues and bone windows were reviewed. PQRS compliance statement - One or more of the following individualized dose reduction techniques were utilized for this study: 1. Automated exposure control 2. Adjustment of the mA and/or kV according to patient size 3. Use of iterative reconstruction technique FINDINGS: There is no evidence of hemorrhage, mass or extra-axial fluid collection. Mims-white differentiation is maintained with no evidence of edema. There is no mass effect or shift of the intracranial structures. The ventricles, basilar cisterns and cortical sulci are normal in size and configuration for the patients stated age. The cerebellum and brainstem are unremarkable. The calvarium demonstrates no evidence of fracture or focal lesion. There is normal aeration of the visualized paranasal sinuses and mastoid air cells. The visualized portions of the orbits are normal. Atherosclerotic calcifications of the intracranial internal carotid and vertebral arteries is seen. IMPRESSION: No evidence for acute intracranial hemorrhage. Findings of no evidence for acute intracranial hemorrhage discussed with referring provider Alana at 1:08 PM 01/09/2019. Electronically signed by: Pa Alegre MD (01/09/2019 1:10 PM) [facility] DICTATED and SIGNED BY: PA ALEGRE MD DATE: 01/09/19 1310 Course & Med Decision Making Course & Med Decision Making Pertinent Labs and Imaging studies reviewed. (See chart for details) Evaluation of patient in ER showed 63-year-old male patient with complaining of confusion and problems with balance. Code stroke was activated at arrival of patient. Patient had NIHS of 0 and was not a candidate for TPA. Patient felt better while he was in ER. CT head and labs was unremarkable. Plan discharge patient home to diagnose of medication side effect and anxiety about helped. Dragon Disclaimer Dragon Disclaimer This electronic medical record was generated, in whole or in part, using a voice recognition dictation system. Departure Departure Impression: Primary Impression: Medication side effect Additional Impressions: Anxiety about health Renal insufficiency Disposition: HOME, SELF-CARE (at 1448) Condition: IMPROVED Referrals: LUCRETIA PERES PA-C (PCP) Patient Instructions: Confusion Additional Instructions: Drink plenty of liquids Follow-up with your primary care physician in 3-5 days Return to ER if not getting better NIHSS Stroke Scale NIH Stroke Scale: NIH Stroke Scale Response (Comments) Value Level of Consciousness: 0 Alert/Responsive 0 LOC Questions: 0 Answers both correctly 0 LOC Commands: 0 Performs both tasks 0 Best Gaze: 0 Normal 0 Visual: 0 No visual loss 0 Facial Palsy: 0 Normal, symmetrical 0 Motor - Left Arm 0 No drift 0 Motor - Right Arm 0 No drift 0 Motor - Left Leg 0 No drift 0 Motor: Right Leg 0 No drift 0 Limb Ataxia: 0 Absent 0 Sensory: 0 No loss 0 Best Language: 0 Normal 0 Dysathria: 0 Normal 0 Extinction and Inattention: 0 Normal 0 Total 0 Problem Qualifiers PROSPER KO MD Jan 09, 2019 14:51
== END 2019-01-09 15:13 | disposition home or self-care (01) ==
LOC: ER 12:25
DX: R41.9 Unspecified symptoms and signs involving cognitive functions and awareness (principal); R41.0 Disorientation, unspecified; N28.9 Disorder of kidney and ureter, unspecified; E78.00 Pure hypercholesterolemia, unspecified; I10 Essential (primary) hypertension; I25.2 Old myocardial infarction; E11.9 Type 2 diabetes mellitus without complications; Z90.89 Acquired absence of other organs
CPT/HCPCS: 36415; 70450; 71045; 80053; 82553; 82962; 84484; 85025; 85610; 85730; 93005; 99285-25

== ENCOUNTER → 2020-04-06 | Outpatient (CLI) | payer OTHER ==
[~2020-04-06] MED LIST changes: -GLIM4TAB2 PO; +GLIM4TAB8 PO; +SIMV40TA18 PO; -SIMV40TA3 PO
--- NOTE | 2020-04-06 16:50 | RAD ---
MR#: [id number] Date of Study: 04/06/2020 Ordering Physician: SHAYLEE ARROYO, Referring Physician: SHAYLEE ARROYO, Tech: Ana Paula Ornelas, SANGEETA, RVT, RTR APPROVED REPORT Patient Location: OUT-PATIENT Laterality:Bilateral Indications Stenosis of Carotid Artery Risk Factors Hypertension: Doppler Spectral Velocity Analysis Right Left pCCA 109/23 cm/spCCA 122/21 cm/s mCCA 125/125 cm/smCCA 113/29 cm/s dCCA 98/120 cm/sdCCA 106/25 cm/s Bulb 50/15 cm/sBulb 82/19 cm/s ECA 125/18 cm/sECA 113/21 cm/s pICA 48/14 cm/spICA 77/24 cm/s Mai 63/27 cm/smICA 90/29 cm/s dICA 69/22 cm/sdICA 105/35 cm/s Vert. 41/13 cm/sVert. 45/18 cm/s ICA/CCA 0.55ICA/CCA 0.92 Findings Grayscale images demonstrate mild diffuse atherosclerotic plaque in the carotid vasculature. Spectral waveforms and color Doppler overall are consistent with 0 to less than 50% stenosis in the c arotid system. No focal high-grade stenosis identified. Normal ICA to CCA ratios with antegrade ava tebral velocities with normal ranges. Critical Notification Critical Value: No <Conclusion> 1. No significant carotid occlusive disease bilaterally. Signed by : Sandro Quigley, Electronically Approved : 04/06/2020 16:50:03
== END ==
LOC: US 14:37
PROVIDERS: ATTEND Internal Medicine Cardiovascular Disease
DX: I65.23 Occlusion and stenosis of bilateral carotid arteries (principal)
CPT/HCPCS: 93880